=== PATIENT | male | born 1935 | race Caucasian/White ===

== ENCOUNTER 2016-09-11 10:01 | Inpatient (IN) | payer MEDICARE ==
[~2016-09-11] VITALS: Ht 170.2 cm; Wt 78.2 kg
--- NOTE | ~2016-09-11 | HEMODYNAMI ---
PATIENT:RACHNA TAN MEDICAL RECORD: [id number] : [birth year] [address] [id number] ADMISSION DATE: 09/11/16 Generatedon:09/19/201614:33 Patient name: RACHNA TAN Patient #: [id number] SSN: [id number] : 1935 Date of study: 09/19/2016 Page: Of Hemodynamic Procedure Report Patient Data Patient Demographics Procedure consent was obtained First Name: RACHNA Gender: Male Last Name: BRITNEY : 1935 [facility] Initial: N Age: 81 year(s) Patient #: [id number] Race: SSN: [id number] Additional ID: [id number] Contact details Address: [address] [place] [address] State: [place] City: [facility] Zip code: [address] Admission Admission Data Admission Date: 09/11/2016 Admission Time: 15:26 Room #: [facility] Lab Results Lab Result Date: 09/19/2016 Lab Result Time: 0:00 Biochemistry Name Units Result Min Max BUN mg/dl 126 --(----)-* 7 18 Creatinine mg/dl 8.1 --(----)-* 0.6 1.3 CBC Name Units Result Min Max Hemoglobin g/dl 10.6 *-(----)-- 13.5 17.5 Procedure Procedure Types Cath Procedure Diagnostic Procedure MARY Procedure Description Procedure Date Procedure Date: 09/19/2016 Procedure Start Time: 14:22 Procedure End Time: 14:32 Procedure Staff Name Function Dmitry Nathan MD Performing Physician Nina Palma RT Scrub Merary Cohen RN Nurse Adwoa Kenny RT Monitor Khoa Dsouza RT Monitor Procedure Data Cath Procedure Fluoroscopy Diagnostic fluoroscopy Total fluoroscopy Time: 0 time: 0 min min Diagnostic fluoroscopy Total fluoroscopy dose: 0 dose: 0 mGy mGy Contrast Material Contrast Material Type Amount (ml) Isovue 370 0 Estimated blood loss: 0 ml Procedure Complications No complications Procedure Medications Medication Administration Route Dosage Oxygen NC 2 l/min Hurricaine [place] P.O. Sprays Refer to Anesthesia Notes for Sedation Medications Hemodynamics Rest HGB: 10.6 (g/dl) Heart Rate: 74 (bpm) Snapshots Pre Cath Intra NCS Post Cath Vital Signs Time Heart Resp SPO2 NIBP (mmHg) Rhythm Pain Sedation Rate (ipm) (%) Status Level (bpm) 14:12:42 74 16 99 Measuring NSR 0 (11) 10(A) , No pain 14:19:36 83 17 99 139/66(114) NSR 0 (11) 10(A) , No pain 14:23:56 83 16 99 126/50(118) NSR 0 (11) 6(A) , No pain 14:28:08 73 22 100 108/49(63) NSR 0 (11) 6(A) , No pain 14:32:16 166 13 100 106/43(86) NSR 0 (11) 9(A) , No pain Medications Time Medication Route Dose Verified Delivered Reason Notes Effective ness by by 14:12:17 Oxygen NC 2 Dmitry Reagan Per l/min [place] Noel physician RN 14:12:26 Hurricaine P.O. Sprays Dmitry Andres Per [place] [facility] physician MD KENNY 14:18:45 Refer to Dmitry Andres for Anesthesia [facility] sedation Notes for MD KENNY Sedation Medications Procedure Log Time Note 13:50:49 Nina Counts RT(R) sent for patient. Start room use. 14:04:56 Informed consent obtained and on chart 14:05:42 Diagnostic Cath Status : Elective 14:07:01 Time tracking: Regular hours 14:07:04 Plan of Care:Hemodynamics will remain stable., Cardiac rhythm will remain stable., Comfort level will be maintained., Respiratory function will remain adequate., Patient/ family verbilizes understanding of procedure., Procedure tolerated without complication., Recovers from procedure without complications.. 14:07:10 Patient received from Med II to CCL 1 Alert and oriented. Tansferred to table in Supine position. 14:07:11 Warm blankets applied, and brendan hugger turned on for patient comfort. 14:07:11 Correct patient and procedure confirmed by team. 14:07:12 ECG and BP/O2 sat monitors applied to patient. 14:08:37 syeda barriga B2B Account Executive present for MARY. 14:10:52 Vital chart was started 14:10:53 Baseline sample Acquired. 14:10:56 Rhythm: sinus rhythm 14:10:58 Full Disclosure recording started 14:11:04 H&P Date Dictated: 09/19/2016 Within 30 days and on chart.. 14:11:06 Pre-procedure instructions explained to patient. 14:11:06 Pre-op teaching completed and patient verbalized understanding. 14:11:07 Family in waiting room. 14:11:08 Patient NPO since Midnight. 14:11:37 Is the patient allergic to Iodine/contrast media? No. 14:11:39 Was the patient premedicated? No 14:11:41 Is patient on blood thinner?No 14:11:42 Patient diabetic? Yes. 14:11:43 If diabetic: On Metformin? No 14:11:48 Previous problem with sedation/anesthesia? No ? 14:11:50 Snore? No 14:11:51 Sleep apnea? No 14:11:53 Deviated septum? No 14:11:54 Opens mouth fully? Yes 14:11:55 Sticks out tongue? Yes 14:11:56 Airway obstruction? No ? 14:11:59 Dentures? No ? 14:12:12 Pre procedure: right dorsailis pedis pulse 1+ Palpable, but thready & weak; easily obliterated 14:12:17 Oxygen 2 l/min NC was given by Merary Cohen RN; Per physician; 14:12:26 Hurricaine [place] Sprays P.O. was given by Dmitry Nathan MD; Per physician; 14:12:41 Patient pain scale 0/10 ?. 14:12:56 IV patent on arrival in Left upper arm with 0.9% NaCl at [facility]. 14:13:41 Lab Result : BUN 126 mg/dl 14:13:41 Lab Result : Creatinine 8.1 mg/dl 14:13:41 Lab Result : Hemoglobin 10.6 g/dl 14:13:46 Lab results completed and on chart. 14:13:50 Alarms reviewed by R. N. 14:13:51 Sharps counted by scrub and verified by R.N. 14:13:53 Physician arrived 14:13:53 --------ALL STOP TIME OUT------ 14::53 Final Timeout: patient, procedure, and site verified with staff and physician. All members of the team are in agreement. 14:13:59 Physical assessment completed. ASA score P 4 - A patient with severe systemic disease that is a constant threat to life as per Dmitry Nathan MD. 14:14:06 Sedation plan: IV Moderate Sedation Versed, Fentanyl 14:14:16 dr boogie present and monitoring patient for TIVA. 14:18:45 Refer to Anesthesia Notes for Sedation Medications was given by Dmitry Nathan MD; for sedation; 14:22:14 Procedure started. 14:23:01 MARY started. 14:29:30 MARY completed. 14:29:34 Procedure ended.(Physican Out) 14::53 Fluoroscopy time 00.00 minutes. 14:29:55 Fluoroscopy dose: 0 mGy 14:29:55 Flurop Dose total: 0 14:30:05 Contrast amount:Isovue 370 0ml. 14:30:24 Post-procedure physical assessment completed. ASA score P 4 - A patient with severe systemic disease that is a constant threat to life as per Dmitry Nathan MD. 14:30:27 Post procedure rhythm: unchanged. 14:30:28 Estimated blood loss: 0 ml 14:30:30 Post procedure instruction explained to patient.Patient verbalizes understanding. 14:30:30 Patient needs reinforcement of post procedure teaching. 14:31:26 Procedure Complication : No complications 14:32:15 Procedure and supply charges have been captured, reviewed, submitted and are correct. 14:32:16 Vital chart was stopped 14:32:16 See physician's report for complete and final results. 14:32:22 Report given to PCU. 14:32:26 Patient transfered to PCU with Bed. 14:32:28 Procedure ended. 14:32:28 Full Disclosure recording stopped 14:33:00 End room use (Document Last) Signature Audit Dyer Stage Time Signature Unsigned Intra-Procedure 09/19/2016 Khoa Dsouza 2:33:29 PM RT(R) Signatures Monitor : Adwoa Kenny RT Signature : Date : Time : Monitor : Khoa Dsouza RT Signature : Date : Time : [place] [id number] [place] [address]
[~2016-09-11 10:01] MED LIST: COLACE100 MG PO; COREG12.5 MG PO; DULCOLAX5 MG PO; GABAPENTIN100 MG PO; LASIX80 MG PO; NOVOLIN 70/30 110 ML SC; NOVOLIN N100 U/ML SQ; OXY IR30 MG PO; ULTRACET TABLET1 TAB PO
[2016-09-11 10:39] LABS: BASOPHILS 0.1 % (0.0-2.0); EOSINOPHILS 0 % (0-7); HEMATOCRIT 33.1 % (42.0-54.0); HEMOGLOBIN 10.3 g/dL (13.5-17.5); IMMATURE GRANULOCYTES 1.7 % (0-5); MCH 30.7 pg (26.0-34.0); MCHC 31.1 g/dL (31.0-37.0); MCV 98.8 fL (80.0-100.0); MONOCYTES 2.8 % (2-11); NEUTROPHILS 93.4 % (40-80); PLATELET COUNT 147 10x3/uL (130-400); RBC 3.35 10x6/uL (4.20-6.10); WBC 13.9 10x3/uL (4.8-10.8)
[2016-09-11 10:51] LABS: ALBUMIN 2.7 g/dL (3.4-5.0); ANION GAP 23.2 mmol/L (8-16); BILIRUBIN - TOTAL 0.59 mg/dL (0.2-1.3); CALCIUM 8.7 mg/dL (8.5-10.1); CREATININE - SERUM 6.5 mg/dL (0.6-1.3); POTASSIUM - SERUM 5.2 mmol/L (3.5-5.1); PROTEIN - SERUM 6.6 g/dL (6.4-8.2)
[2016-09-11 12:03] LABS: APPEARANCE CLOUDY (CLEAR); BACTERIA MANY /hpf (NONE SEEN); BILIRUBIN NEGATIVE (NEGATIVE); COLOR YELLOW (YELLOW); EPITHELIAL CELLS 0-5 /hpf (0-5); GLUCOSE NEGATIVE (NEGATIVE); KETONE NEGATIVE (NEGATIVE); LEUKOCYTE ESTERASE 2+ (NEGATIVE); MUCUS <1+ /lpf (NONE SEEN); NITRITE NEGATIVE (NEGATIVE); PROTEIN 1+ mg/dL (NEGATIVE); RED CELLS - URINE 0-5 /hpf (0-5); UROBILINOGEN NORMAL (NORMAL); WHITE CELLS - URINE 25-50 /hpf (0-5)
--- NOTE | 2016-09-11 13:37 | NUR ---
TRANSFER FROM ER BY STRETCHER. OREINTED TO ROOM. CALL LIGHT IN REACH. WILL CONT. PLAN OF CARE.
[2016-09-11 14:17] VITALS: BP 113/48; BMI 24.8
--- NOTE | 2016-09-11 14:38 | NUR ---
WOUND CARE: NOTED PT ARRIVED TO [facility] WITH THE FOLLOWING SKIN ISSUES: RIGHT HEEL: UNSTAGEABLE PRESSURE INJURY MEASURING 8CM X 5CM LEFT HEEL: UNSTAGEABLE PRESSURE INJURY MEASRING 3CM X 3CM RIGHT UPPER BUTTOCK: SKIN TEAR 1CM X 0.5CM SACRUM 1CM X 0.5CM X 0.5CM STAGE 3 PRESSURE INJURY. STATES THEY HAVE BEEN TRYING TO HEAL THIS FOR A "LONG, LONG TIME". RECOMMEND BRIDGING HEELS AT ALL TIMES WITH PILLOWS AND HEEL PROTECTORS. PLACING PT ON AN AIR OVERLAY MATTRESS, TURN/REPOSITION Q 2 HOURS. CALMOSEPTINE CREAM TO BOTTOM DAILY. WOUND CARE WILL CONTINUE TO MONITOR.
--- NOTE | 2016-09-11 14:38 | NUR ---
PATIENT ARRIVED FROM ER. ASSESSMENT AND HISTORY DONE. WOUND CARE NURSE IN TO ASSESS KATIE FEET AND COCCYX. DR. ALMANZA HERE AND VISTED WITH PATIENT AND SIGNIFICANT OTHER ABOUT DNR. WILL CONTINUE TO MONITOR.
[2016-09-11 15:03] VITALS: BP 113/48
--- NOTE | 2016-09-11 16:51 | NUR ---
1ST STEP MATRESS PUT ON BED. SCDS AND HEEL PROTECTORS APPLIED BILAT. WILL CONT. PLAN OF CARE.
[2016-09-11 20:13] VITALS: BP 107/46
--- NOTE | 2016-09-12 00:55 | NUR ---
RESTING WITH EYES CLOSED, RESPERATIONS EVEN, NO S/S DISTRESS NOTED.
--- NOTE | 2016-09-12 02:26 | NUR ---
KAIAKO KOHANGA REO AT BED SIDE, BATH AND LINEN CHANGE COMPLETE.
[2016-09-12 02:32] VITALS: BP 110/52
--- NOTE | 2016-09-12 03:25 | NUR ---
BS 199, COVERED PER S/S.
--- NOTE | 2016-09-12 03:26 | NUR ---
TRACK GREASER AT BED SIDE, BATH AND LINEN CHANGE COMPLETE.
[2016-09-12 06:10] VITALS: BP 110/52
[2016-09-12 06:27] LABS: ALBUMIN 2.1 g/dL (3.4-5.0); ANION GAP 23.9 mmol/L (8-16); BILIRUBIN - TOTAL 0.4 mg/dL (0.2-1.3); CALCIUM 7.7 mg/dL (8.5-10.1); CARBON DIOXIDE 20.6 mmol/L (21.0-32.0); MAGNESIUM - SERUM 2.1 mg/dL (1.8-2.4); PHOSPHOROUS 6.3 mg/dL (2.5-4.9); POTASSIUM - SERUM 5.5 mmol/L (3.5-5.1); PROTEIN - SERUM 5.2 g/dL (6.4-8.2)
--- NOTE | 2016-09-12 07:15 | NUR ---
RECIEVED REPORT ON PATIENT, PATIENT IS SLEEPING AT THIS TIME, NAD NOTED AT THIS TIME. PATIENT IS ON 3L/MIN VIA NC WITH O2SAT 96%. PATIENT HAS A L FA IV WITH NS INFUSING AT 50ML/HR. PATIENT IS PACED ON TELEMETRY WITH A RATE OF 61 AT THIS TIME. PATIENT BED IS LOW AND LOCKED AT THIS TIME. BED ALARM ON. WILL CONT TO MONITOR PATIENT. CPOC
[2016-09-12 07:50] VITALS: BP 86/44
--- NOTE | 2016-09-12 08:36 | NUR ---
PATIENT GETTING DIAYLSIS AT BEDSIDE
--- NOTE | 2016-09-12 11:08 | NUR ---
patient still getting diaylsis. denies any needs or pain. cpoc
[2016-09-12 11:40] VITALS: BP 115/36
--- NOTE | 2016-09-12 11:42 | NUR ---
Mr. Arredondo had bedside hemodialysis via his left upper arm av graft from 08 until 1118. Average blood flow was 350 mls/minute. Net fluid removed was 1000 mls. Pt. was hypotensive all treatment. Post vital signs were: B/P: 107/32, HR: 78, Temp: 96.9 ax, Resps: 18.
--- NOTE | 2016-09-12 11:55 | NUR ---
PATIENT PUT ON CONTACT ISOLATION FOR STAPH IN BLOOD AND URINE
--- NOTE | 2016-09-12 13:00 | NUR ---
PATIENT SLEEPING AT THIS TIME, NAD NOTED. CHEST RISES AND FALLS EQUALLY. WILL CONT TO MONITOR PATIENT. BED LOW AND LOCKED. CPOC
[2016-09-12 13:48] VITALS: Ht 170.2 cm; Wt 78.2 kg
[2016-09-12 15:46] VITALS: BP 91/98
--- NOTE | 2016-09-12 16:45 | NUR ---
PATIENT FSBS 252, 5 UNITS OF NPH GIVEN PER EMAR. CPOC
[2016-09-12 19:59] VITALS: BP 108/58
--- NOTE | 2016-09-13 00:19 | NUR ---
ELECTRICIAN SUPERVISOR SUBSTATION AT BEDSIDE TO OBTAIN VITALS, CALL LIGHT IN REACH. WILL CONTINUE WITH PLAN OF CARE.
--- NOTE | 2016-09-13 03:48 | NUR ---
RESTING WITH EYES CLOSED, RESPERATIONS EVEN, NO S/S DISTRESS NOTED.
[2016-09-13 04:11] VITALS: BP 114/70
[2016-09-13 05:11] LABS: BASOPHILS 0.1 % (0.0-2.0); EOSINOPHILS 0.1 % (0-7); HEMATOCRIT 31.1 % (42.0-54.0); HEMOGLOBIN 9.8 g/dL (13.5-17.5); IMMATURE GRANULOCYTES 0.4 % (0-5); MCH 30.2 pg (26.0-34.0); MCHC 31.5 g/dL (31.0-37.0); MEAN PLATELET VOLUME 12.5 fL (7.4-10.4); MONOCYTES 3.2 % (2-11); NEUTROPHILS 92.2 % (40-80); RBC 3.24 10x6/uL (4.20-6.10); RDW 15.2 % (11.5-14.5); WBC 14.1 10x3/uL (4.8-10.8)
[2016-09-13 05:26] LABS: PLATELET COUNT 92 10x3/uL (130-400)
[2016-09-13 05:32] LABS: ALBUMIN 2.2 g/dL (3.4-5.0); ANION GAP 19.4 mmol/L (8-16); BILIRUBIN - TOTAL 0.52 mg/dL (0.2-1.3); CALCIUM 8.8 mg/dL (8.5-10.1); CARBON DIOXIDE 25.4 mmol/L (21.0-32.0); MAGNESIUM - SERUM 2.3 mg/dL (1.8-2.4); PHOSPHOROUS 5.6 mg/dL (2.5-4.9); POTASSIUM - SERUM 4.8 mmol/L (3.5-5.1); VANCOMYCIN - RANDOM 12.6 ug/mL (10.0-20.0)
[2016-09-13 05:39] VITALS: BP 108/56
[2016-09-13 05:59] LABS: PLATELET ESTIMATE DECREASED
--- NOTE | 2016-09-13 06:26 | NUR ---
WOOD CABINETMAKER AT BED SIDE, BATH AND LINEN CHANGE COMPLETE.
--- NOTE | 2016-09-13 07:37 | NUR ---
0715-RESTING IN BED WITH EYES CLOSED. RESP ARE EVEN AND NON LABORED. IN CONTACT ISOLATION. ON 1ST STEP OVERLAY BED. PATIENT IS DNR CODE STATUS. LEFT PACER/DEFIB SEEN. ON HEART MONITOR SHOWING PACED, HR 72. ON 3L PER NC. LEFT ARM IV OF NS INFUSING AT 50 CC/HR SEEN, RIGHT AVF SEEN. WILL CONTINUE TO MONITOR.
[2016-09-13 08:00] VITALS: BP 81/44
--- NOTE | 2016-09-13 08:36 | NUR ---
Patient [facility] Pt from [facility] D[facility] on MWF @ 11:00 (2nd shift) schedule. Medical records forwarded to clinic for their records. BMM PRL
[2016-09-13 12:00] VITALS: BP 91/26
--- NOTE | 2016-09-13 13:11 | NUR ---
1305-ASSESSMENT COMPLETE. WITH ASSISTANCE OF VICTOR M CLAIRE, PATIENT ROLLED TO SIDE TO ASSESS BUTTOCK. LARGE DEEP TISSUE INJURY SEEN TO COCCYX WITH SKIN TEAR SEEN. MEPILEX SACRUM IS APPLIED AND DATED. BILAERAL HEELS SEEN WITH DEEP TISSURE INJURY TO THEM, PATIENT DOES HAVE BILATEAL PINK HEELS PROTECTORS ON. TURN EVERY 2 HOURS SIGN PLACED TO DOOR. PATIENT IS PLACED ON LEFT SIDE WITH PILLOW BEHIND BACK AND UNDER LEGS FOR COMFORT. WILL CONTINUE TO MONITOR.
--- NOTE | 2016-09-13 14:20 | NUR ---
Patient Name: RACHNA TAN Admission Status: ER Accout number: [id number] Admission Date: 09-11-2016 : 1935 Admission Diagnosis:COUGH Attending: FABRICIO Current LOS: 2 Anticipated DC Date: Planned Disposition: Nursing Home Facility Primary Insurance: HU[employer] CHOICE PPO MCR ADVANT PLANNED EXTERNAL PROVIDER: [facility], MEDICARE REHAB BED Discharge Planning Comments: * Is the patient Alert and Oriented? No 0 * How many steps to enter\exit or inside your home? 2 0 * PCP DR. DAVID PALENCIA OR ANOTHER DOCTOR IN THE RENAL GROUP 0 * Pharmacy [facility] #2 0 * Preadmission Environment Home with Family 0 * ADLs Independent 0 * Equipment Bedside Commode CPAP Other Oxygen Rolling Walker Shower Chair Wheelchair 0 * Other Equipment PT HAS VERY OLD CPAP MACHINE, HOME ANO PORTABLE OXYGEN, MOTORIZED WHEELCHAIR, MOTOROZIED SCOOTER, GRAB BARS IN SHOWER [facility], - MEDICAL EQUIPMENT PROVIDER 0 * List name and contact numbers for known caregivers / representatives who currently or will assist patient after discharge: LUCIEN HERNANDEZ, SIGNIFICANT OTHER, 0 * Community resources currently utilized Other 0 * Please name any agencies selected above. [facility] on MWF @ 11:00 Paid caregiver drives PT to and from [facility] 0 * Additional services required to return to the preadmission environment? No 0 * Can the patient safely return to the preadmission environment? Yes 0 * Has this patient been hospitalized within the prior 30 days at any hospital? No 0 CM MET WITH PT IN ROOM TO DISCUSS DISCHARGE PLANNING AND NEEDS. PT WOULD LOOK AT PT BUT DOES NOT SPEAK. PT'S SIGNIFICANT OTHER, RIVERA HERNANDEZ, REPORTS THAT PT WAS DOING WELL AT HOME UNTIL LAST FRIDAY. SHE REPORTS LIVING AT HOME INDEPENDENTLY WITH HER (SIGNIFICANT OTHER). PT HAS ALL NEEDED MEDICAL EQUIPMENT PROVIDED BY [facility]. PT HAS NO OUTSIDE SERVICES ASSISTING IN THE HOME. CM DISCUSSED AVAILABILITY OF HOME HEALTH, REHAB SERVICES AND MEDICAL EQUIPMENT. PT'S SIGNIFICANT OTHER REPORTS THAT PT WILL NEED REHAB PRIOR TO GOING HOME AND HAS BEEN TO [facility] IN THE PAST. IF [facility] WILL NOT ACCEPT, SHE WOULD LIKE REFERRAL SENT TO [facility]. CHOICE LETTER SIGNED. CM CALLED [facility], , SPOKE TO BRITTNEY WHO REPORTS THEY WILL NOT ACCEPT PT THAT IS HAVING OUTPATIENT DIALYSIS. CM CALLED [facility], , LEFT MESSAGE FOR BRIGIDO NOTIFYING OF REFERRAL BEING SENT FOR REHAB SERVICES. CM FAXED REFERRAL TO [facility] AT [phone]. CM WAITING ADMISSION DETERMINATION FROM [facility]. Marketing Effectiveness Manager: Aba Egan
[2016-09-13 16:00] VITALS: BP 86/42
[2016-09-13 20:36] VITALS: BP 89/40
[2016-09-14 00:24] VITALS: BP 99/46
[2016-09-14 04:30] VITALS: BP 90/39
--- NOTE | 2016-09-14 06:49 | NUR ---
RECEIVED REPORT FROM ACID BLEACHER NURSE, SEBASTIÁN WHITTEN. PT IN BED, DENIES ANY NEEDS AT THIS TIME. CALL LIGHT IN REACH, HEEL PROTECTORS ON BILAT. IV INFUSING TO LT UPPER ARM. NAD NOTED, WILL CONTINUE TO MONITOR.
[2016-09-14 07:57] LABS: BASOPHILS 0 % (0.0-2.0); EOSINOPHILS 0.1 % (0-7); HEMATOCRIT 29.1 % (42.0-54.0); HEMOGLOBIN 9.2 g/dL (13.5-17.5); IMMATURE GRANULOCYTES 0.4 % (0-5); LYMPHOCYTES 4.5 % (15-50); MCH 29.9 pg (26.0-34.0); MCHC 31.6 g/dL (31.0-37.0); MCV 94.5 fL (80.0-100.0); MONOCYTES 3.3 % (2-11); NEUTROPHILS 91.7 % (40-80); PLATELET COUNT 80 10x3/uL (130-400); RBC 3.08 10x6/uL (4.20-6.10); RDW 15.1 % (11.5-14.5); WBC 14.5 10x3/uL (4.8-10.8)
[2016-09-14 08:12] LABS: ANION GAP 20.8 mmol/L (8-16); CALCIUM 8.7 mg/dL (8.5-10.1); CARBON DIOXIDE 22.2 mmol/L (21.0-32.0); PHOSPHOROUS 5.1 mg/dL (2.5-4.9)
[2016-09-14 08:28] VITALS: BP 102/54
--- NOTE | 2016-09-14 10:25 | NUR ---
ADMINISTERED ULTRAM 50MG FOR PAIN LEVEL OF 5/10. PT DENIES ANY OTHER NEEDS AT THIS TIME, CALL LIGHT IN REACH, NAD NOTED, WILL CONTINUE TO MONITOR.
--- NOTE | 2016-09-14 10:28 | NUR ---
ADMINISTERED MORNING MEDICATIONS AND 4 UNIT SOF HUMULIN FOR BLOOD SUGAR OF 248, PER SLIDING SCALE. PT DENIES ANY NEEDS AT THIS TIME. CALL LIGHT IN REACH, NAD NOTED, WILL CONTINUE TO MONITOR.
[2016-09-14 11:53] VITALS: BP 109/32
--- NOTE | 2016-09-14 12:04 | NUR ---
ADMINISTERED 8 UNITS OF HUMULIN FOR BLOOD SUGAR OF 327, PER SLIDING SCALE.
[2016-09-14 16:03] VITALS: BP 117/48
--- NOTE | 2016-09-14 19:25 | NUR ---
DIALYSIS CURRENTLY IN PROGRESS
[2016-09-14 20:49] VITALS: BP 129/39
--- NOTE | 2016-09-14 21:02 | NUR ---
DILYSIS FINISHED, RECIEVED REPORT FROM DAWNA, DIALYSIS NURSE, REMOVED 2.5 LITERS OF FLUID, VITALS REMAIN STABLE.
--- NOTE | 2016-09-14 21:08 | NUR ---
Mr. Arredondo had bedside hemodialysis today via his right upper arm av graft from 1749 until 2049. Average blood flow was 350 mls/minute. Infused Vancomycin 500 mgs during the last one hour. Removed the 100 mls from the vancomycin as well as a net of 3500 mls. Post vital signs were: B/P: 132/56, HR:55, Temp: 97.3, Resps: 20.
--- NOTE | 2016-09-14 21:24 | NUR ---
HS MEDS GIVEN, BS 174, COVERED PER S/S. REPOSITIONED IN BED FOR COMFORT.
[2016-09-15 00:04] VITALS: BP 92/43
--- NOTE | 2016-09-15 03:18 | NUR ---
RESTING WITH EYES CLOSED, RESPERATIONS EVEN, NO S/S DISTRESS NOTED.
[2016-09-15 04:12] VITALS: BP 102/50
[2016-09-15 04:45] LABS: BASOPHILS 0.2 % (0.0-2.0); EOSINOPHILS 0.5 % (0-7); IMMATURE GRANULOCYTES 0.5 % (0-5); LYMPHOCYTES 5.4 % (15-50); MCH 30.4 pg (26.0-34.0); MCHC 32.3 g/dL (31.0-37.0); MCV 94.2 fL (80.0-100.0); MONOCYTES 4.5 % (2-11); NEUTROPHILS 88.9 % (40-80); PLATELET COUNT 91 10x3/uL (130-400); RBC 3.29 10x6/uL (4.20-6.10); WBC 12.8 10x3/uL (4.8-10.8)
[2016-09-15 05:04] LABS: ANION GAP 20.5 mmol/L (8-16); CALCIUM 8.7 mg/dL (8.5-10.1); CARBON DIOXIDE 24.2 mmol/L (21.0-32.0); CREATININE - SERUM 6.5 mg/dL (0.6-1.3); POTASSIUM - SERUM 4.7 mmol/L (3.5-5.1)
--- NOTE | 2016-09-15 07:15 | NUR ---
RECIEVED REPORT ON PAITNET, PATIENT IS SLEEPING AT THIS TIME. PATIENT HAS A L UPPER ARM WITH NS INFUSING AT 30ML/HR. PATIENT HAS A R AVF WITH BRUIT AND THRILL NOTED. NAD IS NOTED, CHEST RISES AND FALLS EQUALLY. PATIENT IS PACED ON MONITOR WITH A RATE OF 59. WILL CONT TO MONITOR PATIENT. BED LOW AND LOCKED. CALL LIGHT IN REACH. CPOC
[2016-09-15 08:52] VITALS: BP 110/52
--- NOTE | 2016-09-15 09:30 | NUR ---
WHEN TURNING PATIENT TO ASSESS SKIN, PATIENT HAS A LARGE REDDENED AREA ON BUTTOCK AND COCCYX. PATIENT HAS 3 OPEN STAGE 2 AREAS NOTED. ONE THAT IS APPROX 3CM X 1CM, ANOTHER THAT IS APPROX 1CM X 1CM AND THE LAST THAT IS 3CM X 2CM. APPLIED MEPILEX DRESSING AND WILL CONT TO TURN PATIENT EVERY 2 HOURS. CPOC
--- NOTE | 2016-09-15 11:45 | NUR ---
PATIENT EATING LUNCH AT THIS TIME, NOT WANTING TO EAT MUCH BUT IS DRINKING CRANBERRY JUICE.PATIENT FSBS 202, 2 UNITS OF HUMULIN GIVEN, WILL CONT TO ,MONITOR. CPOC
[2016-09-15 13:20] VITALS: BP 101/42
--- NOTE | 2016-09-15 15:26 | NUR ---
PATIENT FAMILY AT BEDSIDE. PATIENT DENIES ANY NEEDS. CPOC
[2016-09-15 17:18] VITALS: BP 108/52
--- NOTE | 2016-09-15 19:03 | NUR ---
LAYING IN BED WITH EYES CLOSED, AWAKENS TO NAME, SKIN WARM AND DRY, RESP UNLABORED, IV PATENT TO LEFT UPPER ARM, O2@2LNC, DRESSING INTACT TO BUTTOCKS, NO DISTRESS NOTED
[2016-09-15 20:19] VITALS: BP 98/61
--- NOTE | 2016-09-15 23:46 | NUR ---
CUT FILER AT BEDSIDE FOR VS, NEEDS ADDRESSED. CALL LIGHT IN REACH. WILL CONT TO MONITOR.
[2016-09-16 00:36] VITALS: BP 101/54
[2016-09-16 04:46] VITALS: BP 127/73
[2016-09-16 05:13] LABS: BASOPHILS 0.2 % (0.0-2.0); HEMATOCRIT 32.1 % (42.0-54.0); HEMOGLOBIN 10.1 g/dL (13.5-17.5); IMMATURE GRANULOCYTES 1.3 % (0-5); LYMPHOCYTES 7.8 % (15-50); MCH 30.2 pg (26.0-34.0); MCHC 31.5 g/dL (31.0-37.0); MCV 96.1 fL (80.0-100.0); MEAN PLATELET VOLUME 12.2 fL (7.4-10.4); MONOCYTES 6.5 % (2-11); NEUTROPHILS 82.2 % (40-80); PLATELET COUNT 132 10x3/uL (130-400); RBC 3.34 10x6/uL (4.20-6.10); RDW 15.1 % (11.5-14.5); WBC 10.2 10x3/uL (4.8-10.8)
[2016-09-16 05:34] LABS: ANION GAP 24.2 mmol/L (8-16); CALCIUM 8.9 mg/dL (8.5-10.1); CARBON DIOXIDE 21.6 mmol/L (21.0-32.0); CREATININE - SERUM 7.5 mg/dL (0.6-1.3); POTASSIUM - SERUM 4.8 mmol/L (3.5-5.1)
--- NOTE | 2016-09-16 06:02 | NUR ---
RESTING QUIETLY IN BED, NO DISTRESS NOTED
[2016-09-16 08:00] VITALS: BP 124/54
[2016-09-16 11:27] VITALS: BP 112/74
[2016-09-16 16:00] VITALS: BP 117/45
--- NOTE | 2016-09-16 18:36 | NUR ---
RESTING IN BED. SOILED LINENS. BM LOOSE, BROWN IN COLOR. DRESSING ON BUTTOCKS CHANGED. NO DRAINAGE. SKIN PILLING OFF. HEELS BRIDGED. PACED 60bpm ON TELEMETRY. REFUSED LUNCH AND DINNER. PATIENT STATES, "I JUST WANT TO SLEEP." CONTINUE PLAN OF CARE. PREPAIR SHIFT CHANGE REPORT. DENIES SOB. BED LOCKED AND LOW CALL LIGHT IN REACH. TWO SIDERAILS UP. RECIEVES LOVENOX INJ.
[2016-09-16 20:58] VITALS: BP 106/61
[2016-09-17 01:46] VITALS: BP 111/64
--- NOTE | 2016-09-17 02:42 | NUR ---
PT LAYING IN BED NO DISTRESS OBSERVED AT THIS TIME CALL LIGHT IN REACH SRX2 BED LOW AND LOCKED IV INFUSING ORDERED AND NO REDNESS OR SWELLING NOTED AT THE SITE OF IV RESPERATIONS EVEN AND UNLBAORED WILL MONITOR
[2016-09-17 05:13] VITALS: BP 104/66
[2016-09-17 05:28] LABS: BASOPHILS 0.3 % (0.0-2.0); EOSINOPHILS 3.5 % (0-7); HEMATOCRIT 33.8 % (42.0-54.0); HEMOGLOBIN 10.6 g/dL (13.5-17.5); IMMATURE GRANULOCYTES 2.3 % (0-5); LYMPHOCYTES 5.9 % (15-50); MCH 29.7 pg (26.0-34.0); MCHC 31.4 g/dL (31.0-37.0); MCV 94.7 fL (80.0-100.0); MEAN PLATELET VOLUME 11.7 fL (7.4-10.4); MONOCYTES 6.8 % (2-11); NEUTROPHILS 81.2 % (40-80); RBC 3.57 10x6/uL (4.20-6.10); RDW 14.9 % (11.5-14.5); WBC 10.3 10x3/uL (4.8-10.8)
[2016-09-17 05:33] LABS: PLATELET COUNT 164 10x3/uL (130-400)
[2016-09-17 06:02] LABS: ANION GAP 24.1 mmol/L (8-16); CALCIUM 7.6 mg/dL (8.5-10.1); CARBON DIOXIDE 21.7 mmol/L (21.0-32.0); CREATININE - SERUM 8.1 mg/dL (0.6-1.3); POTASSIUM - SERUM 4.8 mmol/L (3.5-5.1); VANCOMYCIN - RANDOM 18.3 ug/mL (10.0-20.0)
[2016-09-17 08:28] VITALS: BP 102/51
[2016-09-17 12:39] VITALS: BP 128/60
[2016-09-17 16:26] VITALS: BP 125/56
[2016-09-18 00:37] VITALS: BP 127/69
[2016-09-18 04:31] VITALS: BP 119/31
[2016-09-18 08:40] VITALS: BP 126/38
--- NOTE | 2016-09-18 10:43 | NUR ---
PATIENT RESTING QUIETLY IN BED WITHOUT DISTRESS. WILL CONTINUE TO MONITOR
[2016-09-18 12:38] VITALS: BP 140/63
--- NOTE | 2016-09-18 12:51 | NUR ---
Patient Name: RACHNA TAN Encounter No: [id number] : 1935 Primary Insurance: HUMANA CHOICE PPO MCR ADVANT Anticipated DC Date: Planned Disposition: Half-Way Facility External Planned Provider: [facility] B[facility] DCP follow-up note: CM RECEIVED ORDER FOR CONSULT DUE TO AGE. CM FAXED REFERRAL UPDATE FOR REHAB SERVICES TO [facility] AT [phone]. CM WAITING ADMISSION DETERMINATION FROM [facility]. Material Attendant: Aba Egan
--- NOTE | 2016-09-18 13:49 | NUR ---
Nutrition follow-up: Diet: Renal ADA soft with Nepro PO intake is very, very poor at this time Labs reviewed +BM IVF @ 30 ml/hr Pt not meeting est nutritional needs with current po intake. Recommend PEG tube placement and TF of Nepro started @ 20 ml/hr with increase to 45 ml/hr. RDN following.
--- NOTE | 2016-09-18 15:00 | NUR ---
REC'D THIS PT FROM PREVIOUS NURSE OTIS. PT RESTING QUIETLY IN BED WITH EYES CLOSED. NO S/S OF DISTRESS OR ANY CURRENT NEEDS AT THIS TIME. CL IN REACH. WILL CPOC.
[2016-09-18 16:07] VITALS: BP 126/33
--- NOTE | 2016-09-18 19:30 | NUR ---
ASSESSMENT COMPLETE, DENIES NEEDS AT THIS TIME. CONFUSED, EASILY REORIENTED TO TIME AND PLACE. ON ROOM AIR, RESP EVEN AND UNLAB, TELEMETRY IN PLACE SHOWING HR PACED PER PUBLIC RECORDS OFFICER. LEFT UPPER ARM IV SITE WITH NO R/S NOTED. NS INFUSINF W/O DIFF VIA PUMP AT 30CC/HR . JASON WELL. ON FIRST STEP MATTRESS. BILAT HEEL PROTECTORS IN PLACE. TURN Q 2 FOR C & C, PILLOWS USED FOR SUPPORT. JASON WELL. HOB UP SR UP X2, C/L IN REACH. CONTINUE TO MONITOR.
[2016-09-18 22:30] VITALS: BP 119/52
[2016-09-19 02:50] VITALS: BP 123/57
[2016-09-19 06:05] VITALS: BP 114/49
--- NOTE | 2016-09-19 07:02 | NUR ---
RECEIVED REPORT FROM NURSING COORDINATOR NURSE, NOBLE LOPEZ. PT IN BED, SLEEPING AT THIS TIME. CALL LIGHT IN REACH, NAD NOTED, WILL CONTINUE TO MONITOR.
[2016-09-19 08:21] VITALS: BP 115/57
--- NOTE | 2016-09-19 09:16 | NUR ---
ADMINISTERED MORNING MEDICATIONS, PT IN BED, HAD A LITTLE HARD TIME SWALLOWING PILLS. PT IN BED, DENIES ANY NEEDS AT THIS TIME. CALL LIGHT IN REACH, NAD NOTED, WILL CONTINUE TO MONITOR.
--- NOTE | 2016-09-19 09:25 | NUR ---
PT TRANSFERED TO DIALYSIS VIA BED, NAD NOTED.
--- NOTE | 2016-09-19 10:08 | CN ---
PATIENT NAME:RACHNA TAN MEDICAL RECORD: [id number] : [birth year] LOCATION:D. D.2134 ADMIT DATE: 09/11/16 ACCOUNT: [id number] CONSULTING PHYSICIAN: NINA RICHARDSON MD REFERRING PHYSICIAN: SEBASTIÁN ALMANZA MD DATE OF CONSULTATION: 09/14/2016 ADDENDUM CHIEF COMPLAINT: Wounds. HISTORY OF PRESENT ILLNESS: The patient has bilateral heel eschar. He has decubitus ulcer. He also has knee that has some superficial eschars. I am special education instructor for Dr. Garcia. He is currently out of town. Today is Friday. He will return on the , which is next Friday. I think that local wound care would be the most appropriate thing for now. Palpation aggravates. Nothing alleviates. Symptoms came on gradually. They are longstanding. The patient was admitted with urinary tract infection. From my standpoint, the patient can go home and to return and have these areas debrided. This is a surgery consultation note addendum. For the typed portion of the consult note including the past medical, surgical history, allergies, current medications, and social history, please see the chart PHYSICAL EXAMINATION: GENERAL: The patient does not appear acutely ill. He does appear chronically ill. VITAL SIGNS: Reviewed. HEAD: External ears appear normal. EYES: Extraocular movements are intact. NECK: Trachea is midline. CHEST: No intercostal retractions. PULMONARY: Nonlabored, no stridor. ABDOMEN: No peritonitis. EXTREMITIES: No peripheral cyanosis. Eschars described above. PSYCHIATRIC: Normal affect. NEUROLOGIC: Nonfocal, no lethargy. The patient answers questions appropriately, moves all extremities well. BACK: Mild thoracic kyphosis. LYMPHATICS: No lymphangitic streaking of exposed extremities. IMPRESSION: Bilateral heel ulcers knee eschar decubitus ulcer. PLAN: Debridement next Friday by Dr. Garcia. TRANSINT:[id number] Voice Confirmation ID: [id number] DOCUMENT ID: [id number] CONSULT REPORT [id number] RACHNA TAN ROBERT MD at 1008 CC: [id number] DICTATION DATE: 09/14/162015 SOIL EXPERT: 09/15/16 0330 ADM [address] [place] [id number] [place] [address]
--- NOTE | 2016-09-19 13:28 | NUR ---
HEMODIALYSIS COMPLETE, NET FLUID REMOVAL OF 0.5 LITERS. PATIENT HAD LOW BP UPON INITIATION, USED ALBUMIN DURING TX FOR BP SUPPORT. PATIENT'S ACCESS HAD NO PALPABLE THRILL BEFORE ACCESSING, AND WAS DIFFICULT TO ACCESS-ESPECIALLY THE VENOUS STICK.
--- NOTE | 2016-09-19 14:17 | NUR ---
PT TRANSFERED FROM DIALYSIS TO CHILD CARE LEAD TEACHER FOR MARY.
--- NOTE | 2016-09-19 14:52 | NUR ---
PT TRANSFERED BACK TO ROOM, VIA BED, NAD NOTED, PT DENIES ANY NEEDS AT THIS TIME.CALL LIGHT IN REACH, NAD NOTED, WILL CONTINUE TO MONITOR.
[2016-09-19 15:45] VITALS: BP 140/64
--- NOTE | 2016-09-19 16:40 | NUR ---
BLOOD SUGAR OF 123, NO COVERAGE NEEDED PER SLIDING SCALE, ADMINISTERED 10UNITS OF HUMULIN NPH ORDER. RIVERA SCHOFIELDAN PT'S SIGNIFICANT OTHER IS AT BEDSIDE, FEEDING PT HOMEMADE FOOD. PT DENIES ANY NEEDS AT THIS TIME. CALL LIGHT IN REACH, NAD NOTED, WILL CONTINUE TO MONITOR. RIVERA SCHOFIELDAN'S CELL PH0NE NUMBER IS [phone]
--- NOTE | 2016-09-19 19:30 | NUR ---
ASSESSMENT COMPLETE, DENIES NEEDS AT THIS TIME. AWAKE, ALERT, CONFUSED TO TIME AND PLACE. EATING SNACK BROUGHT EARLIER. JASON WELL. HOB UP SR UP X2, C/L IN REACH. 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 PACED PER TELEMETRY. ON FIRST STEP MATTRESS FOR C & C. BILAT HEEL PROTECTORS IN PLACE. WILL BE NPO AFTER MN FOR AM DEBRIDEMENT PROCEDURE. WILL OBTAIN PERMITS PER ORDERDS. TURN Q 2 HOURS FOR C & C. JASON WELL. RT ARM FISTULA WITH + BRUIT AND THRILL NOTED. LEFT UPPER ARM IV SITE WITH NO R/S NOTED. CONTINUE TO MONITOR.
[2016-09-19 20:00] VITALS: BP 131/56
--- NOTE | 2016-09-19 20:42 | NUR ---
FSBS"200" COVERED WITH S/S INSULIN PER ORDERS. JASON INJ WELL TO LEFT ARM. C/L IN REACH.
--- NOTE | 2016-09-19 23:26 | NUR ---
EYES CLOSED, RESP UNLAB WITH NO S/S OF ACUTE DISTRESS NOTED. C/L IN REACH.
[2016-09-20] VITALS (7 sets, daily range): BP systolic 117–149; BP diastolic 50–77
[2016-09-20 05:43] LABS: BASOPHILS 0.2 % (0.0-2.0); HEMATOCRIT 26.9 % (42.0-54.0); HEMOGLOBIN 8.4 g/dL (13.5-17.5); IMMATURE GRANULOCYTES 1.5 % (0-5); LYMPHOCYTES 3.6 % (15-50); MCH 29.6 pg (26.0-34.0); MCHC 31.2 g/dL (31.0-37.0); MCV 94.7 fL (80.0-100.0); MEAN PLATELET VOLUME 10.9 fL (7.4-10.4); MONOCYTES 4.7 % (2-11); PLATELET COUNT 185 10x3/uL (130-400); RBC 2.84 10x6/uL (4.20-6.10); RDW 14.9 % (11.5-14.5); WBC 13.1 10x3/uL (4.8-10.8)
[2016-09-20 05:46] LABS: ANION GAP 17.2 mmol/L (8-16); CALCIUM 7.2 mg/dL (8.5-10.1); CARBON DIOXIDE 24.8 mmol/L (21.0-32.0); CREATININE - SERUM 5.1 mg/dL (0.6-1.3); MAGNESIUM - SERUM 2.2 mg/dL (1.8-2.4); PHOSPHOROUS 5.7 mg/dL (2.5-4.9); VANCOMYCIN - RANDOM 15.7 ug/mL (10.0-20.0)
--- NOTE | 2016-09-20 07:15 | NUR ---
RECIEVED REPORT ON PATIENT. PATIENT IS ALERT AND ORIENTED AT THIS TIME. PATIENT HAS A L UPPER ARM IV WITH NS INFUSING AT 30ML/HR. PATIENT IS ON 3L/MIN VIA NC WITH NAD NOTED. O2 SAT 98%. PATIENT HAS A [place] CATHETER INTACT DRAINING BY GRAVITY. PATIENT HEELS ARE BRIDGE AT THIS TIME, WITH HEEL PROTECTORS ON. PATIENT DENIES ANY NEEDS OR PAIN AT THIS TIME. WILL CONT TO MONITOR PATIENT, BED LOW AND LOCKED. CPOC
--- NOTE | 2016-09-20 09:15 | NUR ---
MORNING MEDICATIONS GIVEN, PO MEDS HELD DUE TO PATIENT BEING NPO. ASSESSMTENT DONE. DENIES ANY NEEDS. CPOC
--- NOTE | 2016-09-20 09:42 | NUR ---
Patient Name: RACHNA TAN Encounter No: [id number] : 1935 Primary Insurance: HUMANA CHOICE PPO MCR ADVANT Anticipated DC Date: Planned Disposition: Long Term Facility External Planned Provider: [facility], MEDICARE REHAB BED DCP follow-up note: CM RECEIVED CALL FROM BRIGIDO OF [facility] REQUESTING UPDATE. CM FAXED REFERRAL UPDATE FOR REHAB SERVICES TO [facility] AT [phone]. CM WAITING ADMISSION DETERMINATION FROM [facility]. Credit Operations Specialist: Aba Egan
--- NOTE | 2016-09-20 11:31 | NUR ---
Patient Name: RACHNA TAN Encounter No: [id number] : 1935 Primary Insurance: HUMANA CHOICE PPO MCR ADVANT Anticipated DC Date: Planned Disposition: Senior Care Facility External Planned Provider: [facility], MEDICARE REHAB BED DCP follow-up note: CM RECEIVED CALL FROM BRIGIDO AT [facility] WHO REPORTED THAT [facility] WILL NOT BE ABLE TO MEET PT'S NEEDS. CM CALLED PT'S SPOUSE, RIVERA HERNANDEZ, , LEFT MESSAGE ASKING FOR RETURN CALL. CM SPOKE TO PT IN ROOM WHO REPORTS TODAY HIS IS AT [facility] FOR CHEMOTHERAPY. CM DISCUSSED [facility] AND [facility] NOT ACCEPTING PT FOR REHAB. PT REPORTS NEEDING REHAB BEFORE GOING HOME AND WOULD LIKE CM TO CHECK WITH FACILITIES LOCAL TO [place] FOR REHAB PLACEMENT OPTIONS. PT CHOICE UPDATED. CM CALLED TATUM, CLINICAL LIAISON FOR [facility], , AND PROVIDED REFERRAL INFORMATION. CM FAXED REFERRAL FOR REHAB SCREENING TO TATUM AT [phone]. CM WAITING ADMISSION DETERMINATIONS FROM [facility]. Aba Egan, CASE MANAGEMENT
--- NOTE | 2016-09-20 11:45 | NUR ---
PATIENT FSBS 145, NO INSULIN REQUIRED. CPOC
--- NOTE | 2016-09-20 13:13 | NUR ---
patient gone for surgery
--- NOTE | 2016-09-20 13:54 | NUR ---
Nutrition Follow Up: Chart reviewed. Pt in surgery at this time. Diet: NPO (Renal ADA prior to this) PO Intake: 25% (7 meal avg) Wt stable +BM 09/20/16 Labs noted - BUN, Cr, Glucose, Phos elevated Meds: Humulin Pt continues with poor po intake. Pt is not meeting est nutritional needs. Rec an appetite stimulant. RD available for nutrition support recs if needed. Will send Raphael BID to promote wound healing. RD following.
--- NOTE | 2016-09-20 15:30 | NUR ---
PATIENT BACK FROM SURGERY. VSS. WARM BLANKET ON PATIENT. CPOC
--- NOTE | 2016-09-20 15:38 | NUR ---
PT HAS A 5IN BY 6 IN DECUBITIS ULCER THAT IS NETCROTIC AND UNSTAGABLE. PT REPORTS NOT BEING TURNED FREQUENTLY. DR HORN SAYS HE WAS NOT NOTIFIED ABOUT THE DECUBITIS. PTS HEELS WERE SUPPOSE TO BE BRIDGED AND WERE NOT. FOAM HEEL PROTECTOR WAS ON RIGHT HEEL AND THE FOAM HEEL PROTECTOR WAS NOT ON LEFT HEEL IT WAS TIED UP IN THE PATIENTS COVERS. THE PT HAD DRY FECAL MATTER ON HIS TESTICALS AND INBETWEEN HIS LEGS. THE BED HAD DRY SKIN, BETADINE, AND FOOD. ALSO, THE PATIENT WAS LEFT WITH THE PLASTIC URINAL INBETWEEN HIS LEGS RUBBING A RAW RIGHT AROUND HIS PENIUS AND TESTICALS.
--- NOTE | 2016-09-20 16:40 | EC ---
PATIENT:RACHNA TAN DATE OF SERVICE: 09/11/16 SEX: M MEDICAL RECORD: [id number] DATE OF : [birth year] LOCATION:D. D.213 AGE OF PATIENT: 81 ADMISSION DATE: 09/11/16 REFERRING PHYSICIAN: INTERPRETING PHYSICIAN: SERENE CRANE M.D. ECHOCARDIOGRAM REPORT ECHO CHARGES 4 ECHO COMPLETE CLINICAL DIAGNOSIS: SBE WITH POSTIVE BLOOD CULTURE AND LOW GRADE FEVER ECHOCARDIOGRAPHIC MEASUREMENTS (adult normal given) AC root (d.<3.7cm) 3.9 LV Septum d (<1.2 cm> 1.6 Valve Excursion 1.4 LV Septum (systole) 1.7 Left Atria (s.<4.0cm> 4.3 LVPW d(<1.2cm) 1.3 RV (d.<2.3cm) 4.4 LVPW (sytole) 1.6 LV diastole(<5.6CM) 6.1 MV E-F(>70mm/sec) LV systole 4.6 LVOT Diameter 1.7 MV exc.(>10mm) Est.ejection fraction (50-75%) Pericardial Effusion N DOPPLER: LVIT A 29.0 E 93.0 LA RVSP 33 LVOT 86 AOP1/2T Asc. Ao 122 RVOT 88 RA PA 126 AV Gradient Peak 6.0 AV Mean 2.9 AV Area 1.5 MV Gradient Peak 4.5 MV Mean 1.3 MV Area COMMENTS: Manager Communication: Mecca VERMA Finish Mixer:2 Dr. Crane TAPE# PACS DATE OF SERVICE: 09/12/2016 REFERRING PHYSICIAN: Demetris Turpin MD INDICATION: Endocarditis. DESCRIPTION: The left ventricle is mildly dilated. There is mild LV dysfunction noted. His ejection fraction is in the order of 40% to 45%. Mitral valve appears structurally normal. There is mild regurgitation seen. Left atrium is mildly dilated. The aortic valve is trileaflet. There is no stenosis ECHOCARDIOGRAM REPORT [id number] RACHNA TAN or regurgitation seen. Right ventricle is mildly dilated. Tricuspid valve appears to demonstrate a thickening of the anterior leaflet. This could be consistent with a vegetation. There is mild regurgitation noted as well. Right atrium is mildly dilated. There is no pericardial effusion seen. IMPRESSION: 1. Mild left ventricular dysfunction with ejection fraction of 40% to 45%. 2. Mild mitral regurgitation. 3. There appears to be thickening of the anterior leaf of the tricuspid valve, which could be consistent with a vegetation. There is mild regurgitation noted as well. RECOMMENDATIONS: Consider transesophageal echo if clinically indicated. TRANSINT:[id number] Voice Confirmation ID: [id number] DOCUMENT ID: [id number] SERENE CRANE M.D. at 1640 CC: [id number] DICTATION DATE: 09/13/16 1100 SUPERVISOR COIN MACHINE: 09/13/16 1224 [facility] IN [place] [id number] [place] [id number]
--- NOTE | 2016-09-20 17:41 | NUR ---
PATIENT SITTING UP IN BED EATING DINNER, DENIES ANY NEEDS. WILL CONT TO MONITOR
--- NOTE | 2016-09-20 19:23 | NUR ---
ASSESSMENT COMPLETE, RESTING ON LEFT SIDE. IV TO LEFT UPPER ARM WITH NS INFUSING AT KVO. DRSGS TO BILATERAL HEELS C/D/I. HEELS ELEVATED OFF OF BED. PT DENIES PAIN OR NEEDS, BED LOW, CL IN REACH.
--- NOTE | 2016-09-20 21:14 | NUR ---
HS MEDS GIVEN, BS 149, NO COVERAGE NEEDED, REPOSITIONED OT RIGHT SIDE, CALMOSEPTINE PLACED ON BUTTOCKS. HEELS REMIAN BRIDGED.
--- NOTE | 2016-09-21 01:13 | NUR ---
PT RESTING SOUNDLY WITHOUT C/O OR DISTRESS NOTED. CALL LIGHT IS WITHIN REACH. NO NEEDS VOICED. WILL MONITOR.
--- NOTE | 2016-09-21 02:10 | NUR ---
REPOSITIONED IN BED TO LEFT SIDE, CL IN REACH.
[2016-09-21 04:00] VITALS: BP 128/86
--- NOTE | 2016-09-21 07:10 | NUR ---
RECEIVED REPORT. ASSUMED CARE OF PATIENT. CALL LIGHT WITH IN REACH. 1ST STEP OVERLAY PATENT. PATIENT RESTING WITH EYES CLOSED ON RIGHT LATERAL SIDE AT THIS TIME. NO ACUTE DISTRESS. DRESSINGS INTACT TO BILATERAL HEELS.
[2016-09-21 07:23] LABS: ANION GAP 24.6 mmol/L (8-16); CALCIUM 7.4 mg/dL (8.5-10.1); CREATININE - SERUM 6.1 mg/dL (0.6-1.3); POTASSIUM - SERUM 4.6 mmol/L (3.5-5.1)
[2016-09-21 07:34] VITALS: BP 135/53
--- NOTE | 2016-09-21 09:49 | NUR ---
TURNED AND REPOSITIONED. CALMOSEPTINE APPLIED TO SACRUM/BUTTOCKS. PATIENT RESTING ON LEFT LATERAL SIDE AT THIS TIME. NO DISTRESS. CALL LIGHT WITHIN REACH.
--- NOTE | 2016-09-21 11:56 | NUR ---
FSBS 174. 2 UNITS HUMULIN INSULIN ADMINISTERED AT THIS TIME.
[2016-09-21 12:13] VITALS: BP 125/62
--- NOTE | 2016-09-21 14:47 | NUR ---
DIALYSIS NURSE AT BEDSIDE TO PROVIDE DIALYSIS TO PATIENT.
[2016-09-21 16:19] VITALS: BP 122/37
--- NOTE | 2016-09-21 17:47 | NUR ---
MEDICATED FOR PAIN AT THIS TIME. CONTINUES TO RECEIVE DIALYSIS AT BEDSIDE.
--- NOTE | 2016-09-21 18:42 | NUR ---
RESTING IN BED. CONTINUES TO RECEIVE DIALYSIS AT THIS TIME. NO DISTRESS.
--- NOTE | 2016-09-21 20:04 | NUR ---
ASSESSMENT COMPLETE, A&O, 02 AT 3 LITER VIA NC. IV TO LEFT UPPER ARM WITH NS INFUSING AT 30. LARGE DEEP TISSUE WOUND NOTED ON COCCYC/BUTTOCKS, CALMOSEPTINE APPLIED. DRSGS NOTED TO BLILATERAL HEELS, C/D/I. PT DENIES PAIN OR NEEDS, BED LOW, CL IN REACH.
[2016-09-21 20:49] VITALS: BP 118/57
--- NOTE | 2016-09-21 21:19 | NUR ---
HS MEDS GIVEN. BS 147, NO COVERAGE PER S/S. TYLENOL GIVEN FOR C/O PAIN. TOO EARLY FOR ULTRAM. DRSG TO RIGHT HEEL CHANGED, MAISHA W/D. PT UNALBE TO TOLERATED SECOND HEEL DRSG TO BE CHANGED AT THIS TIME, WILL ATTMEPT TO CHANGE LEFT HEEL DRSG LATER IN SHIFT.
--- NOTE | 2016-09-21 23:02 | NUR ---
MORTGAGE OPERATIONS MANAGER AT BED SIDE, BATH AND LINEN CHNAGE COMPLETE. TURNED TO RIGHT SIDE, PLACED PILLOW BEHIND BACK. FEET ELEVATED ON PILLOWS TO KEEP HEELS OFF OF BED.
--- NOTE | 2016-09-22 00:10 | NUR ---
PT RESTING WITH EYES CLOSED. RESP EVEN AND REGULAR. SR UP X2, CALL LIGHT WITHIN REACH.
[2016-09-22 00:36] VITALS: BP 107/49
--- NOTE | 2016-09-22 03:34 | NUR ---
RESTING WITH EYES CLOSED, RESPERTIONS EVEN, NO S/S DISTRESS NOTED.
[2016-09-22 04:39] VITALS: BP 113/53
[2016-09-22 06:49] LABS: BASOPHILS 0.4 % (0.0-2.0); EOSINOPHILS 0.9 % (0-7); HEMATOCRIT 26.6 % (42.0-54.0); HEMOGLOBIN 8.1 g/dL (13.5-17.5); IMMATURE GRANULOCYTES 0.9 % (0-5); LYMPHOCYTES 4.9 % (15-50); MCH 29.6 pg (26.0-34.0); MCHC 30.5 g/dL (31.0-37.0); MCV 97.1 fL (80.0-100.0); MEAN PLATELET VOLUME 10.7 fL (7.4-10.4); MONOCYTES 4.4 % (2-11); NEUTROPHILS 88.5 % (40-80); PLATELET COUNT 179 10x3/uL (130-400); RBC 2.74 10x6/uL (4.20-6.10); RDW 15.7 % (11.5-14.5)
[2016-09-22 07:01] LABS: CREATININE - SERUM 4.8 mg/dL (0.6-1.3); MAGNESIUM - SERUM 2.2 mg/dL (1.8-2.4); PHOSPHOROUS 6.3 mg/dL (2.5-4.9); VANCOMYCIN - RANDOM 20.6 ug/mL (10.0-20.0)
[2016-09-22 07:04] LABS: ANION GAP 18.2 mmol/L (8-16); CALCIUM 6.9 mg/dL (8.5-10.1); CARBON DIOXIDE 24.5 mmol/L (21.0-32.0); POTASSIUM - SERUM 3.7 mmol/L (3.5-5.1)
--- NOTE | 2016-09-22 07:48 | NUR ---
RECEIVED REPORT. ASSUMED CARE OF PATIENT AT THIS TIME. RESP EVEN AND UNLABORED. CALL LIGHT WITHIN REACH. 1ST STEP OVERLAY PATENT. IV FLUIDS KVO TO LEFT UPPER ARM. DRESSINGS INTACT TO BILATERAL HEELS. REPORTED THAT DRESSING CHANGES WERE ONLY COMPLETED TO ONE FOOT DUE TO THE AMOUNT OF PAIN PATIENT WAS EXPERIENCING AND ONLY HAS 50MG OF TRAMADOL ORDERED. NO ACUTE DISTRESS AT THIS TIME.
[2016-09-22 09:31] VITALS: BP 144/63
--- NOTE | 2016-09-22 09:45 | NUR ---
ATTEMPTED TO FEED PATIENT AM MEAL AND PATIENT REFUSING. INSTRUCTED PATIENT TO CALL US IF HE CHANGES HIS MIND AND DECIDES HE WANTS SOMETHING TO EAT.
--- NOTE | 2016-09-22 11:27 | NUR ---
FSBS 99. NO INSULIN COVERAGE REQUIRED PER SLIDING SCALE.
[2016-09-22 12:55] VITALS: BP 139/63
--- NOTE | 2016-09-22 14:21 | NUR ---
MEDICATED FOR PAIN PRIOR TO PROVIDING WOUND CARE TO BILATERAL HEELS. WOUND CARE TO BILATERAL HEELS COMPLETED AT THIS TIME. PATIENT TURNED AND REPOSITIONED. CALL LIGHT PLACED WITHIN REACH. PATIENT STATES HE IS COMFORTABLE AT THIS TIME. TOLERATED DRESSING CHANGE WELL. RIGHT HEEL WITH MORE EXTENSIVE DEBRIDEMENT THAN LEFT. DAMPENED DAKINS APPLIED ORDERD, PADDED WITH 4X4'S AND WRAPPED WITH KERLIX. BOTH HEEL HAVE DARK AREAS TO AREAS OF DEBRIDEMENT. FEET ARE BRIGDGED AND OFFLOADED, SUPPORTED WITH PILLOWS AND LEG ROLL PROTECTORS.
--- NOTE | 2016-09-22 14:25 | NUR ---
PATIENT RESTING ON LEFT LATERAL SIDE WITH EYES CLOSED AT THIS TIME. NO ACUTE DISTRESS.
--- NOTE | 2016-09-22 16:37 | NUR ---
FSBS 108. NO INSULIN ADMINISTERED PER SLIDING SCALE. PATIENT DID RECEIVE HUMULIN N AT THIS TIME.
[2016-09-22 16:59] VITALS: BP 136/64
--- NOTE | 2016-09-22 18:00 | NUR ---
PATIENT LYING IN BED WITH EYES OPEN, ATTENTION TOWARD TELEVSION. CALL LIGHT WITHIN REACH. 1ST STEP OVERLAY PATENT. NO DISTRESS. DENIES NEEDS.
--- NOTE | 2016-09-22 19:53 | NUR ---
RESUMED CARE OF PT, LYING IN BED WITH EYES CLOSED RESPIRAITONS EVEN AND UNLABORED ON LPM VIA NC. 80 PACED ON TELEMETRY. LEFT UPPER ARM INFUSING NS @ 30. 1ST OVERLAY INFLATED. NO NEEDS VOICED AT THIS TIME. WILL CONTINUE TO MONITOR. SEE NURSE ASSESSMENT. CALL LIGHT IN REACH.
[2016-09-22 21:36] VITALS: BP 131/81
--- NOTE | 2016-09-23 01:45 | NUR ---
BUPRRENEX 0.15MG IVP FOR PAIN DURING DRESSING CHANGE. LEFT FOOT DRESSING IS SATURATED IN BLOOD CONTAINING CLOTS, CLEANSED WITH WOUND AUDIT SPEC AND APPLIED DAKINS SOLUTION TO HEEL. RIGHT FOOT IS CONSIDERABLY MORE PAINFUL, BUT DRESSING IS LESS SATURATED. CALL LIGHT IN REACH. WILL CONTINUE TO MONITOR.
[2016-09-23 02:34] VITALS: BP 140/72
[2016-09-23 04:44] VITALS: BP 142/79
--- NOTE | 2016-09-23 06:44 | NUR ---
NO CHANGES FROM PREVIOUS ASSESSMENT, CALL LIGHT IN REACH. BUPRENEX GIVEN FOR FOOT PAIN
--- NOTE | 2016-09-23 07:30 | NUR ---
PT LEFT FOOT WAS FOUND IN POOL OF APPROX. 60 CC BLOOD AND DRESSING COMPLETELY SATURATED, FOOT WAS REDRESSED AT THIS TIME ORDERED. KARIME CALLED TO CONTINUE ULTRAMS AND INFORMED AT THIS TIME ABOUT FOOT. SHE STATED THAT SHE THOUGHT DR. HOUGH HAD MENTIONED SOMETHING ABOUT A WOUND VAC AND HAVING WOUND CARE TAKE CARE OF IT. WILL MENTION IT TO JESSICA GAUTAM WHEN SHE COMES IN. WILL CONTINUE TO MONITOR.
[2016-09-23 07:42] LABS: BASOPHILS 0.3 % (0.0-2.0); EOSINOPHILS 0.9 % (0-7); HEMATOCRIT 24.1 % (42.0-54.0); HEMOGLOBIN 7.7 g/dL (13.5-17.5); IMMATURE GRANULOCYTES 0.8 % (0-5); LYMPHOCYTES 4.8 % (15-50); MCH 30.4 pg (26.0-34.0); MCV 95.3 fL (80.0-100.0); MEAN PLATELET VOLUME 10.5 fL (7.4-10.4); MONOCYTES 4.6 % (2-11); NEUTROPHILS 88.6 % (40-80); PLATELET COUNT 179 10x3/uL (130-400); RBC 2.53 10x6/uL (4.20-6.10); RDW 15.4 % (11.5-14.5)
[2016-09-23 07:48] LABS: ANION GAP 20.1 mmol/L (8-16); CALCIUM 7.3 mg/dL (8.5-10.1); CARBON DIOXIDE 23.9 mmol/L (21.0-32.0); CREATININE - SERUM 5.8 mg/dL (0.6-1.3); MAGNESIUM - SERUM 2.2 mg/dL (1.8-2.4)
[2016-09-23 07:52] LABS: PHOSPHOROUS 7.9 mg/dL (2.5-4.9)
[2016-09-23 08:00] VITALS: BP 134/57
--- NOTE | 2016-09-23 10:12 | NUR ---
PT IS ALERT. NO CO PAIN AT THIS TIME. WILL CONTINUE TO MONITOR. NO OTHER NEEDS AT THIS TIME. ASSESSMENT DONE PER FLOWSHEET.
[2016-09-23 11:08] VITALS: BP 128/51
--- NOTE | 2016-09-23 12:01 | NUR ---
PER DR. HOUGH'S ORDERS APPLIED WOUND VAC/VERAFLOW TO BILATERAL HEELS. VERA FLOW WITH 1/2 STRENGTH DAKINS SOLUTION IS INSTILLING TO LEFT HEEL AND NORMAL WOUND VAC TO RIGHT HEEL WOUND. SETTINGS ARE -125MMHG MODERATE CONTINUOUS WITH DAKINS 1/2 STRENGTH INSTILLING Q 3.5 HOURS/SOAK TIME 10 MIN (LEFT HEEL ONLY). SURGICAL SHARPS DEBRIDEMENT PERFORMED ON 09/10/[address] HOUGH IN OR. NOTED AN UNSTAGEABLE PRESSURE INJURY TO COCCYX/SACRUM. COVERED WITH BLACK ESCHAR. NO DRAINAGE OR ODOR NOTED. PT IS ON A TURN Q 2 HOURS SCHEDULE. HEELS ELEVATED. WOUND CARE WILL CONTINUE MONITORING.
--- NOTE | 2016-09-23 13:19 | NUR ---
NO SS OF DISTRESS AT THIS TIME. NO OTHER NEEDS AT THIS TIME. WILL CONTINUE TO MONITOR.
[2016-09-23 15:09] VITALS: BP 143/66
--- NOTE | 2016-09-23 19:30 | NUR ---
PRBC INFUSING W/O DIFF VIA PUMP TO LEFT UPPER ARM IV SITE WITH NO R/S NOTED AT SITE. HOB UP SRUP X2, C/L IN REACH. IN CONTACT ISOLATION PER HOSPITAL PROTOCOL FOR MRSA IN BLOOD AND URINE. ON FIRST STEP MATTRESS, RESP UNLAB WITH O2 @2L NC IN PLACE BILAT HEELS WITH WOUND VAC IN PLACE. TELEMETRY IN PLACE SHOWING HR PACED PER QUANTITATIVE ANALYST MARKETING. RT AVFISTULA WITH + BRUIT AND THRILL NOTED. CALMSEPTINE AND BUTT BALM NOTED TO ESCAR ON BUTTOCKS. WILL NOT STAY OFF BACK. CONTINUE TO MONITOR.
--- NOTE | 2016-09-23 20:30 | NUR ---
PRBC UNIT INFUSION COMPLETE. JASON WELL. NO S/S OF ADVERSE REACTIONS NOTED AT THIS TIME. HOB UP SR UP X2, C/L IN REACH. CONTINUE TO MONITOR,
[2016-09-23 21:31] VITALS: BP 136/93
--- NOTE | 2016-09-23 23:00 | NUR ---
BATHED AND LINEN CHANGE DONE AT THIS TIME. JASON WELL.VOICES NO C/O PAIN OR DISCOMFORT AT THIS TIME. HOB UP SR UP X2, C/L IN REACH. CONTINUE TO MONITOR.
[2016-09-24 00:11] VITALS: BP 126/55
[2016-09-24 06:33] VITALS: BP 115/52
[2016-09-24 07:54] VITALS: BP 137/65
--- NOTE | 2016-09-24 11:11 | NUR ---
Patient Name: RACHNA TAN Encounter No: [id number] : 1935 Primary Insurance: HUMANA CHOICE PPO MCR ADVANT Anticipated DC Date: 09-25-2016 Planned Disposition: Correction Facility External Planned Provider: [facility], MEDICARE REHAB BED DCP follow-up note: CM RECEIVED CALL FROM TATUM, CLINICAL LIAISON FOR [facility], , WHO REPORTED SHE IS WAITING ON INSURANCE AUTHORIZATION FROM PT'S INSURANCE COMPANY. CM RECEIVED ORDER FOR LTACH EVALUATION. CM SPOKE TO PT IN ROOM, DISCUSSED LTACH ORDER AND AVAILABILITY. PT STATES THAT HE PREFERRED TO GO TO [facility] FOR REHAB SERVICES IF THEY WILL ACCEPT HIM. IF PT NEEDS LTACH AND IS DENIED REHAB AT [facility], PT WOULD LIKE REFERRAL SENT TO [facility] IN [place]. CM CALLED JOANIE WIGGINS, CLINICAL LIAISON FOR [facility], , SPOKE TO LOTUS AND FAXED REFERRAL TO [facility] AT [phone]. CM WAITING LTACH ADMISSION DETERMINATION FROM [facility] AND INSURANCE AUTHORIZATION FOR [facility] LONG-TERM FACILITY. Aba Egan, CASE MANAGEMENT
[2016-09-24 12:01] VITALS: BP 148/64
--- NOTE | 2016-09-24 13:00 | NUR ---
NO SS OF DISTRESS WILL CONTINUE TO MONITOR.
--- NOTE | 2016-09-24 14:15 | NUR ---
PT IS ALERT. ASSESSMENT DONE PER FLOWSHEET. NO CO PAIN AT THIS TIME. WILL CONTINUE TO MONITOR.
--- NOTE | 2016-09-24 14:59 | NUR ---
Nutrition follow-up: Diet: Renal ADA PO intake ~20% average of last 9 meals +BM PO intake remains very poor; recommend starting nutrition support; NGT vs PEG tube placement with TF started if physician, family, pt agree. RDN following.
[2016-09-24 16:01] VITALS: BP 109/60
--- NOTE | 2016-09-24 16:59 | OP ---
PATIENT NAME: RACHNA TAN MEDICAL RECORD: [id number] :[birth year] LOCATION:D. 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 SURGEON: Joni Hough MD ANESTHESIA: General with LMA per ELECTRIC KNIFE OPERATOR. REFERRING PHYSICIAN: Nicola Tyson MD PREOPERATIVE NOTE: Mr. 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 He has severe bilateral heel and sacral decubiti. He has had Gram-positive organisms on blood culture and he is brought to the OR to debride the heel decubiti. DESCRIPTION OF PROCEDURE: Under anesthesia with the patient in left lateral decubitus position and prepped and draped in a sterile manner, the necrotic eschars were sharply excised with a scalpel from both wounds. Also, epidermolysis was debrided by cutting back the peeling epidermis. Hemostasis was obtained with electrocautery. Note, the wounds bled well and there was obviously sufficient tissue perfusion and these are nonischemic lesions. There was jose purulent matter or pus in the left heel decubitus. This was tracking up under the skin on the posterior aspect of the ankle and along the Achilles tendon. This area was opened partially to facilitate drainage. It was debrided sharply and also gauze debridement was performed. The wounds measured 6 x 8 on the left and about 0.5 cm in depth and on the right, the wound was 4 x 4 cm of similar depth. On neither side did I encounter bone or periosteum, so I think these are stage III at this point. Dakin's quarter strength solution wet-to-dry dressings were applied to both and the patient was awakened and taken to the recovery room in stable condition. There was minimal blood loss during the procedure and all sponges, instruments, and needles were accounted for. No drain was used. I did not submit any tissue for histopathology or other pathology examination. I did submit cultures for aerobic and anaerobic organisms and a swab for Gram stain of the pus on the left heel wound. PLAN: Basically, continue his same preoperative care. We will ask the wound care nurse to reevaluate and to begin wound VAC dressings with Dakin's irrigation at least on the left heel. TRANSINT:[id number] Voice Confirmation ID: [id number] DOCUMENT ID: [id number] OPERATIVE REPORT [id number] RACHNA TAN JAMES MD at 1659 CC: [id number] DICTATION DATE: 09/20/16 1510 CUPBOARD BUILDER: 09/20/16 1604 ADM IN [place] [id number] [place] [address]
--- NOTE | 2016-09-24 20:33 | NUR ---
Mr. Arredondo had bedside hemodialysis today via his right upper arm av graft from 1732 until 2032. Average blood flow was 300 mls/minute per orders. Zero net removed due to cramping. Post vital signs were: B/P: 138/48, HR: 81, Temp: 97.2, Resps:18.
[2016-09-24 21:39] VITALS: BP 131/50
--- NOTE | 2016-09-24 23:25 | NUR ---
BS 133, NO COVERAGE NEEDED PER S/S.
[2016-09-25 00:46] VITALS: BP 123/54
--- NOTE | 2016-09-25 02:38 | NUR ---
RESTING WITH EYES CLOSED, RESPERATIONS EVEN, NO S/S DISTRESS NOTED.
--- NOTE | 2016-09-25 02:49 | NUR ---
ULTRAM 1 TAB GIVEN AT PT REQUEST FOR C/O BACK PAIN.
[2016-09-25 04:00] VITALS: BP 137/69
[2016-09-25 06:17] LABS: BASOPHILS 0.2 % (0.0-2.0); EOSINOPHILS 0.4 % (0-7); HEMATOCRIT 25.1 % (42.0-54.0); IMMATURE GRANULOCYTES 0.5 % (0-5); LYMPHOCYTES 4.7 % (15-50); MCH 29.9 pg (26.0-34.0); MCHC 31.9 g/dL (31.0-37.0); MCV 93.7 fL (80.0-100.0); MEAN PLATELET VOLUME 10.5 fL (7.4-10.4); MONOCYTES 4.2 % (2-11); PLATELET COUNT 159 10x3/uL (130-400); RBC 2.68 10x6/uL (4.20-6.10); RDW 15.7 % (11.5-14.5); WBC 14.3 10x3/uL (4.8-10.8)
[2016-09-25 07:00] LABS: ANION GAP 17.2 mmol/L (8-16); CALCIUM 7.2 mg/dL (8.5-10.1); CARBON DIOXIDE 25.4 mmol/L (21.0-32.0); CREATININE - SERUM 4.5 mg/dL (0.6-1.3); PHOSPHOROUS 6.1 mg/dL (2.5-4.9); POTASSIUM - SERUM 3.6 mmol/L (3.5-5.1); VANCOMYCIN - RANDOM 17.2 ug/mL (10.0-20.0)
[2016-09-25 09:21] VITALS: BP 143/64
--- NOTE | 2016-09-25 12:02 | NUR ---
[facility] - Patient's OPHD clinic is [facility] on MWF 2nd shift (approx 11:00). Medical records were forwarded the unit earlier in admission and updated records were sent again today. Will cont to monitor for further orders regarding OPHD needs. LIA PRL.
--- NOTE | 2016-09-25 12:23 | NUR ---
Patient Name: RACHNA TAN Encounter No: [id number] : 1935 Primary Insurance: HUMANA CHOICE PPO MCR ADVANT Anticipated DC Date: 09-25-2016 Planned Disposition: Brand Coordinator Acute Care Facility External Planned Provider: KRANTHI COOK DCP follow-up note: CM RECEIVED SECOND ORDER FOR LTACH EVALUATION. CM SPOKE TO VALVE FITTER WHO CALLED AND SPOKE TO DR. CHUA TO INFORM THAT LTACH ASSESSMENT FOR ADMISSION HAD BEEN INITIATED ON 09-24-16. ADVISED THAT NEED FOR IV VANC WILL BE FOR APPROXIMATELY 6 WEEKS. JOANIE WIGGINS, CLINICAL LIAISON FOR [facility], , ARRIVED AT HOSPITAL TO FOLLOW UP ON HER INITIAL EVALUATION YESTERDAY. JOANIE HAS MET WITH PT AND EDUCATED PT ON LTACH SERVICES YESTERDAY AND PT IS IN AGREEMENT WITH PLACEMENT AT [facility] FOR LTACH SERVICES. CM PROVIDED UPDATED INFORMATION FOR LTACH ASSESSEMENT AND INSURANCE AUTHORIZATION. JOANIE ADVISED THAT IF DENIED BY INSURANCE, SHE WILL REQUEST DOCTOR TO DOCTOR CONSULT TO APPEAL FOR LTACH SERVICES. CM WAITING LTACH ADMISSION DETERMINATION FROM [facility] AND INSURANCE AUTHORIZATION FOR EITHER LTACH OR [facility]. Aba Egan, CASE MANAGEMENT
[2016-09-25 12:28] VITALS: BP 133/56
--- NOTE | 2016-09-25 13:13 | NUR ---
WOUND CARE / WOUND VAC DRESSING CHANGES / REASSESSMENT WOUND VAC DRESSING CHANGE WOUND TYPE: SURGICAL DEBRIDEMENT BILATERAL HEELS WOUND LOCATION: BILATERAL HEELS WOUND AGE IN MONTHS: DEBRIDEMENT ATTEMPTED IN LAST 10 DAYS? DATE/TYPE:SHARPS DEBRIDEMENT 09/10/[address] HOUGH SERIAL DEBRIDEMENTS REQUIRED? UNKNOWN MEASUREMENT DATE: 09/25/16 #1 LEFT HEEL: 5.5CM X 6CM X 0.2CM #2 RIGHT HEEL: 8CM X 5CM X 0.5CM FULL THICKNESS? YES MUSCLE, TENDON OR BONE EXPOSED? NO UNDERMINING? NO TUNNELING/SINUS? NO APPEARANCE OF WOUND BED : #1 LEFT HEEL: PINK/RED #2 RIGHT HEEL: PINK WITH BROWN EXUDATE (AMOUNT, COLOR, ODOR): SMALL, SEROUS NO ODOR FOAM TYPE: BLACK # OF PIECES USED: #1 ONE PIECE FOAM TYPE: BLACK # OF PIECES USED: #2 ONE PIECE EDUCATION: EFFECTS OF PRESSURE ON HEELS/BOTTOM PT VOICED UNDERSTANDING REASSESSMENT OF UNSTAGEABLE PRESSURE INJURY TO SACRUM/COCCYX MEASURES 10.5CM X 8CM X ESCHAR PT BEING TURNED ON Q2 SCHEDULE. WILL CONTINUE TO MONITOR.
[2016-09-25 16:15] VITALS: BP 140/60
[2016-09-25 20:53] VITALS: BP 139/63
--- NOTE | 2016-09-25 23:28 | NUR ---
WINDOW CASER AT BED SIDE, BATH AND LINEN CHANGE COMPLETE.
--- NOTE | 2016-09-26 00:19 | NUR ---
RESTING WITH EYES CLOSED, RESPERATIONS EVEN, NO S/S DISTRESS NOTED.
[2016-09-26 00:41] VITALS: BP 119/58
--- NOTE | 2016-09-26 03:59 | NUR ---
BLOCK BOLTER MULE OPERATOR AT BEDSIDE TO OBTAIN VITALS, CALL LIGHT IN REACH. WILL CONTINUE WITH PLAN OF CARE.
[2016-09-26 05:34] VITALS: BP 119/56
[2016-09-26 06:56] LABS: ANION GAP 14.9 mmol/L (8-16); CALCIUM 7.4 mg/dL (8.5-10.1); CARBON DIOXIDE 27.8 mmol/L (21.0-32.0); CREATININE - SERUM 5.6 mg/dL (0.6-1.3); PHOSPHOROUS 7.2 mg/dL (2.5-4.9); POTASSIUM - SERUM 3.7 mmol/L (3.5-5.1); VANCOMYCIN - RANDOM 21.2 ug/mL (10.0-20.0)
[2016-09-26 07:05] LABS: BASOPHILS 0.2 % (0.0-2.0); EOSINOPHILS 0.7 % (0-7); HEMATOCRIT 25.3 % (42.0-54.0); IMMATURE GRANULOCYTES 0.4 % (0-5); LYMPHOCYTES 4.5 % (15-50); MCH 29.9 pg (26.0-34.0); MCHC 31.6 g/dL (31.0-37.0); MCV 94.4 fL (80.0-100.0); MEAN PLATELET VOLUME 10.1 fL (7.4-10.4); MONOCYTES 6.5 % (2-11); NEUTROPHILS 87.7 % (40-80); PLATELET COUNT 153 10x3/uL (130-400); RBC 2.68 10x6/uL (4.20-6.10); WBC 12.7 10x3/uL (4.8-10.8)
--- NOTE | 2016-09-26 07:36 | NUR ---
0655-LAYING ON LEFT SIDE WITH HOB AT 30 DEGREES, IN CONTACT ISOLATION FOR MRSA BLOOD AND URINE. ON 1ST STEP OVERLAY, TURN EVERY 2 HOURS. ON 2L PER NC, LEFT UPPER ARM WITH NS INFUSING AT KVO. RIGHT AVF, + RUIT AND THRILL. PACED ON HEART MONITOR, HR 79. PATIENT IS DNR CODE STATUS. WILL CONTINUE TO MONITOR.
[2016-09-26 09:12] VITALS: BP 127/54
--- NOTE | 2016-09-26 14:44 | TEE ---
PATIENT:RACHNA TAN N MEDICAL RECORD: [id number] LOCATION:D. D.213 AGE OF PATIENT: 81 ADMISSION DATE: 09/11/16 SEX: M REFERRING PHYSICIAN: INTERPRETING PHYSICIAN: JAQUELIN FRANCIS MD TRANSESOPHAGEAL ECHOCARDIOGRAM MARY CHARGE Y INDICATIONS: SBE ASSESS FOR VEGATATIONS ON AORTIC AND TRICSUPID VALVES PREMEDICATIONS: PATIENT'S RESPONSE PROCEDURE DOPPLER MEASUREMENTS: LVIT LA PA 126 RA LVOT 86 RVOT 88 Asc. Ao 122 AV Gradient Peak 6.0 AV Mean 2.9 AV Area 1.5 MV Gradient Peak 4.5 MV Mean 1.3 MV Area INTERPRETATION: Doppler: 2-D: NO VEGATATIONS NOTED ON VAVLES COLOR FLOW DOPPLER MILD MR,WHIF AI, MILD + TR NORMAL SALINE STUDY: MISCELLANOUS: DIAGNOSIS: PLAN: Loom Fixer Supervisor:[employer] [facility] [employer] [facility] Teacher: Mecca VERMA COMMENTS: DATE OF SERVICE: 09/19/2016 Transesophageal Note DESCRIPTION OF PROCEDURE: After general sedation via anesthesia, a transesophageal Omniplane probe placed in the distal esophagus and proximal stomach without difficulty. TRANSESOPHAGEAL ECHOCARDIOGRAM REPORT [id number] RACHNA TAN FINDINGS: LVH is present. LV internal dimension is normal. Wall motion is normal. EF is greater than 85%. Aortic valve is well visualized, this is tricuspid with good excursion. No evidence of vegetation. Left atrium appears normal. Left atrial appendage appears normal with good contractility. No evidence of thrombus. Mitral valve is thickened with no evidence of vegetation. No more than mild MR. Right-sided chamber is grossly normal. Tricuspid valve is well visualized. This has some redundancy, but no evidence of vegetation. No more than mild MR. At the end of the procedure, the probe was turned posteriorly and this showed minimal atherosclerotic debris in the descending aorta. TRANSINT:[id number] Voice Confirmation ID: [id number] DOCUMENT ID: [id number] at 1444 CC: [id number] DICTATION DATE: 09/19/16 1434 DESIGN ENGINEERING TECHNICIAN: 09/19/16 2145 ADM IN [facility] [address] [place] [address]
--- NOTE | 2016-09-26 15:08 | NUR ---
DIALYSIS TREATMENT INITIATED VIA RIGHT AVG AT 1156 AND DISCONTINUED AT 1457. REMOVED 1000ML OF FLUID AND PROCESSED 58.6L OF BLOOD. PATIENT RESTED QUIETLY THROUGHOUT TREATMENT. POST VITALS: BP: 163/60, HR: 76, TEMP: 97.7, RESP: 14.
--- NOTE | 2016-09-26 15:15 | NUR ---
Patient Name: RACHNA TAN Encounter No: [id number] : 1935 Primary Insurance: [employer] CHOICE PPO MCR ADVANT Anticipated DC Date: 09-27-2016 [facility] Disposition[facility] External Planned Provider: KARLOS CAAL DCP follow-up note: CM RECEIVED CALL FROM [employer] GAS DERRICK OPERATOR, ELOISA CONDON, , EXT [phone] WHO REPORTED THAT PT HAS BEEN DENIED LTACH CARE BY [facility] WITH RECOMMENDATION FOR INTERMEDIATE PLACEMENT. THE DOCTOR MAY REQUEST PEER TO PEER CONFERENCE WITH [facility] PHYSICIAN BY SUPPLYING CONTACT NUMBER TO NURSE ELOISA SO THAT THE [facility] DOCTOR MAY CALL FOR PEER TO PEER. CM RECEIVED CALL FROM JOANIE WIGGINS, CLINICAL LIAISON FOR [facility], , WHO WAS MADE AWARE OF THE DENIAL AND FEELS THAT PT WOULD BENEFIT GREATLY FROM LTACH SERVICES OPPOSED TO INTERMEDIATE AND WOULD REQUEST TREATING DOCTOR CONTACT INSURANCE DOCTOR FOR APPEAL. CM RECEIVED 7 PAGE FAX DENIAL, PROVIDED COPY TO PT AND PT'S SPOUSE, SCANNED INTO CASE MANAGEMENT DATABASE. DOCTOR MAY REQUEST PEER TO PEER CONFERENCE WITH [facility] PHYSICIAN BY SUPPLYING CONTACT NUMBER TO [employer] MACHINE OPERATOR WHO WILL PROVIDE IT TO [facility] NURSE ELOISA CONDON, , EXT [phone] SO THAT THE [facility] DOCTOR MAY CALL FOR PEER TO PEER. Aba Egan, CASE MANAGEMENT
[2016-09-26 16:02] VITALS: BP 163/60
--- NOTE | 2016-09-26 19:16 | NUR ---
STILL IN ISOLATION. HAD DIALYSIS TODAY WITH 1L PULLED OFF. DENIES ANY NEEDS AT PRESENT TIME. WILL CONTINUE TO MONITOR OFTEN. STILL WITH BILATERAL WOUND VACS TO HEELS.
[2016-09-27 02:28] VITALS: BP 157/62
[2016-09-27 05:21] LABS: BASOPHILS 0.3 % (0.0-2.0); EOSINOPHILS 0.6 % (0-7); HEMATOCRIT 27.1 % (42.0-54.0); HEMOGLOBIN 8.5 g/dL (13.5-17.5); IMMATURE GRANULOCYTES 0.3 % (0-5); LYMPHOCYTES 5.3 % (15-50); MCH 30.2 pg (26.0-34.0); MCHC 31.4 g/dL (31.0-37.0); MEAN PLATELET VOLUME 10.1 fL (7.4-10.4); MONOCYTES 6.3 % (2-11); NEUTROPHILS 87.2 % (40-80); PLATELET COUNT 183 10x3/uL (130-400); RBC 2.81 10x6/uL (4.20-6.10); RDW 16.1 % (11.5-14.5); WBC 10.8 10x3/uL (4.8-10.8)
[2016-09-27 05:23] LABS: MCV 96.4 fL (80.0-100.0)
[2016-09-27 05:41] LABS: ANION GAP 13.4 mmol/L (8-16); CARBON DIOXIDE 30.4 mmol/L (21.0-32.0); PHOSPHOROUS 5.4 mg/dL (2.5-4.9); POTASSIUM - SERUM 3.8 mmol/L (3.5-5.1); VANCOMYCIN - RANDOM 17.4 ug/mL (10.0-20.0)
[2016-09-27 08:10] VITALS: BP 126/49
--- NOTE | 2016-09-27 11:04 | NUR ---
Patient Name: RACHNA TAN Encounter No: [id number] : 1935 Primary Insurance: [employer] CHOICE PPO MCR ADVANT Anticipated DC Date: 09-27-2016 Planned Disposition[facility] External Planned Provider: KRANTHI COOK DCP follow-up note: CM RECEIVED PHONE NUMBER FROM DR. CHUA, CALLED [facility] NURSE ELOISA CONDON, , EXT [phone] AND PROVIDED PHONE NUMBER FOR DR. CHUA. ELOISA INFORMED CM THAT DR. CHUA WILL NEED TO [facility], , FOR PEER TO PEER APPEAL FOR LTACH DENIAL. CM PAGED DR. CHUA AND CALLED DR. CHUA, LEAVING DETAILED MESSAGE WITH DR. LEX HICKMAN OF [facility]'S PHONE NUMBER FOR PEER TO PEER: [phone]. Aba Egan, CASE MANAGEMENT
--- NOTE | 2016-09-27 11:28 | NUR ---
Nutrition Follow Up: Chart reviewed. Pt with wound vacs to bilateral heels. Per MD note sacral decubitus healing well. Diet: Renal ADA PO Intake: 22% (6 meal avg) +BM 09/27/16 I=O Wt gain of 28# since admit? Labs noted - BUN, Cr, Phos elevated Meds: Humulin, Vit B, Reglan, Albumin Pt continues with very poor po intake. Pt is not meeting est nutritional needs. Rec begin nutritional support via PEG vs NGT if pt/MD/family agrees. Will send Raphael BID to promote wound healing. RD following.
[2016-09-27 12:14] VITALS: BP 148/58
--- NOTE | 2016-09-27 14:56 | NUR ---
WOUND VAC DRESSING CHANGE WOUND TYPE: SURGICAL DEBRIDEMENT OF ST 3 PRESSURE INJURIES/KATIE HEELS WOUND LOCATION: BILATERAL HEELS WOUND AGE IN MONTHS: DEBRIDEMENT ATTEMPTED IN LAST 10 DAYS? DATE/TYPE: SERIAL DEBRIDEMENTS REQUIRED? MEASUREMENT DATE: 09/28/16 #1 LEFT HEEL: 5.5CM X 6CM X 0.2CM #2 RIGHT HEEL: 8CM X 5CM X 0.5CM FULL THICKNESS? YES MUSCLE, TENDON OR BONE EXPOSED? NO UNDERMINING? NO TUNNELING/SINUS? NO APPEARANCE OF WOUND BED : LEFT-PINK/RED RIGHT PINK/BROWN EXUDATE (AMOUNT, COLOR, ODOR): SMALL, SEROUS NO ODOR FOAM TYPE: BLACK # OF PIECES USED: LEFT-ONE PIECE FOAM TYPE: BLACK # OF PIECES USED: RIGHT-ONE PIECE CONTINUES ON VERAFLO WITH 1/2 STRENGTH DAKINS INSTILLING Q 3.5 HOURS, SOAKING FOR 10 MINUTES. -125MMHG, MOD/CONTINUOUS UNSTAGEABLE PRESSURE INJURY TO SACRUM/COCCYX 10.5CM X 8CM X ESCHAR. PT IS ON A TURN SCHEDULE BUT CONTINUES TO REPOSITION HIMSELF TO HIS BACK.
[2016-09-27 15:54] VITALS: BP 121/63
--- NOTE | 2016-09-27 19:25 | NUR ---
ALERT/AWAKE DENIES PAIN OR ANY NEEDS. SHIFT ASSESSMENTS COMPLETED. RIGHT UP FISTULA HAD SOME BLOOD OOZING FROM IT, CLEANED WITH WOUND PIPE FITTER SUPERVISOR MAINTENANCE, APPLIED 4X4'S/TAPE. WILL CONT TO MONITOR. WOUND VAC TO BILATERAL HEELS INTACT. IN CONTACT ISOLATION. WILL CONT TO MONITOR CLOSELY.
[2016-09-27 20:00] VITALS: BP 137/57
[2016-09-28] VITALS: BP 154/66
--- NOTE | 2016-09-28 00:30 | NUR ---
BABY REGISTRY SALES CONSULTANT PRESENT IN ROOM. DENIES ANY NEEDS OR DISCOMFORTS.
--- NOTE | 2016-09-28 04:13 | NUR ---
WOUND VAC SHOWING LEAK. REINFORCED WITH CLEAR DRESSING IN WOUND VAC KIT.
[2016-09-28 06:29] LABS: BASOPHILS 0.3 % (0.0-2.0); EOSINOPHILS 0.5 % (0-7); HEMATOCRIT 28.1 % (42.0-54.0); HEMOGLOBIN 8.8 g/dL (13.5-17.5); IMMATURE GRANULOCYTES 0.4 % (0-5); LYMPHOCYTES 5.7 % (15-50); MCH 30.2 pg (26.0-34.0); MCHC 31.3 g/dL (31.0-37.0); MCV 96.6 fL (80.0-100.0); MEAN PLATELET VOLUME 10.3 fL (7.4-10.4); MONOCYTES 4.5 % (2-11); NEUTROPHILS 88.6 % (40-80); PLATELET COUNT 187 10x3/uL (130-400); RBC 2.91 10x6/uL (4.20-6.10); WBC 11.1 10x3/uL (4.8-10.8)
[2016-09-28 06:51] LABS: ANION GAP 17.1 mmol/L (8-16); CALCIUM 7.6 mg/dL (8.5-10.1); CARBON DIOXIDE 26.1 mmol/L (21.0-32.0); POTASSIUM - SERUM 4.2 mmol/L (3.5-5.1); VANCOMYCIN - RANDOM 15.7 ug/mL (10.0-20.0)
[2016-09-28 06:54] LABS: PHOSPHOROUS 7.5 mg/dL (2.5-4.9)
--- NOTE | 2016-09-28 07:30 | NUR ---
ASSESSMENT DONE. PT A/O. DENIES NEEDS. DENIES DISCOMFORT. WOUND VAC TO BILATERAL HEELS WITHOUT LEAKS. ASSISTED PATENT DRAFTER WITH REPOSITIONING PT. CALL LIGHT WITH IN REACH. WILL CONT. TO MONITOR.
[2016-09-28 08:12] VITALS: BP 135/52
--- NOTE | 2016-09-28 09:15 | NUR ---
PT INCONT OF STOOL. COURTESY CLERK AND NURSE CLEANED PT, AND CHANGED LINENS. CALMOSEPTINE APPLIET TO COCCYX. PT TOLERATED WELL. CALL LIGHT WITH IN REACH. WILL CONT. TO MONITOR.
--- NOTE | 2016-09-28 10:16 | NUR ---
RESTS ON 1ST STEP MATRESS IN ISOLATION ROOM. CALL LIGHT IN REACH. WILL MONITOR NEEDS.
[2016-09-28 12:03] VITALS: BP 154/65
[2016-09-28 16:22] VITALS: BP 153/63
--- NOTE | 2016-09-28 17:33 | NUR ---
PT GETTING DIALYSIS IN ROOM. NO DISTRESS NOTED. CALL LIGHT WITH IN REACH. WILL CONT. TO MONITOR.
--- NOTE | 2016-09-28 18:19 | NUR ---
HEMODIALYSIS COMPLETED, NET FLUID REMOVAL OF 2 LITERS. HAD TO STOP TX AND RETURN BLOOD HALF WAY THROUGH AFTER CLOTTING OF THE VENOUS PRESSURE GAUGE LINE...PATIENT FORGETS AND BENDS HIS ARM CAUSING PRESSURES TO ALARM AND MACHINE TO STOP RUNNING. RESTRUNG AND FINISHED TX.
[2016-09-28 21:48] VITALS: BP 135/57
--- NOTE | 2016-09-28 22:52 | NUR ---
PT LAYING IN BED DIALYSIS COMPLETED. PT APPERS TO BE CONFUSED TO SITUATION AND REORINATED TO SITUATION PT VERBALIZED UNDERSTANDING. NO DISTRESS OBSERVED WOUND VAC TO BILATERAL HEELS IN PLACE AND SUCTION SET TO CONTINUIOS IVP INFUSING AT 10ML/HR AND NO INFULTRATION OR REDNESS OBSERVED WILL MONITOR
[2016-09-29 00:30] VITALS: BP 120/60
[2016-09-29 04:30] VITALS: BP 147/58
[2016-09-29 08:01] VITALS: BP 158/76
--- NOTE | 2016-09-29 09:20 | NUR ---
D/C PTS L.UPPER ARM PIV R/T IT BEING OUTDATED AND LOOKED IRRITATED AT SITE. CLEANSED SITE AND APPLIED BAND-AID. PT VOICED THANKS AND STATED IT FELT BETTER WITHOUT IT. PT HAS NO IV MEDICATIONS OR FLUIDS ORERED AND NO REASON FOR NEW IV.
[2016-09-29 09:43] LABS: BASOPHILS 0.1 % (0.0-2.0); EOSINOPHILS 0.1 % (0-7); HEMATOCRIT 30.2 % (42.0-54.0); HEMOGLOBIN 9.3 g/dL (13.5-17.5); IMMATURE GRANULOCYTES 0.2 % (0-5); LYMPHOCYTES 3.3 % (15-50); MCH 30.4 pg (26.0-34.0); MCHC 30.8 g/dL (31.0-37.0); MEAN PLATELET VOLUME 9.9 fL (7.4-10.4); MONOCYTES 5.1 % (2-11); NEUTROPHILS 91.2 % (40-80); PLATELET COUNT 220 10x3/uL (130-400); RBC 3.06 10x6/uL (4.20-6.10); RDW 16.4 % (11.5-14.5)
[2016-09-29 09:44] LABS: MCV 98.7 fL (80.0-100.0); WBC 14.4 10x3/uL (4.8-10.8)
[2016-09-29 10:04] LABS: % SATURATION 16 % (15-55); IRON 28 ug/dl (35-150); TOTAL IRON BIND CAPACITY 167 ug/dl (260-445); UNSAT IRON BIND CAPACITY 139 ug/dl (150-375)
[2016-09-29 10:11] LABS: ALBUMIN 2.2 g/dL (3.4-5.0); ANION GAP 18.6 mmol/L (8-16); BILIRUBIN - TOTAL 0.66 mg/dL (0.2-1.3); CALCIUM 8.5 mg/dL (8.5-10.1); CARBON DIOXIDE 27.2 mmol/L (21.0-32.0); CREATININE - SERUM 4.2 mg/dL (0.6-1.3); MAGNESIUM - SERUM 2.1 mg/dL (1.8-2.4); PHOSPHOROUS 5.8 mg/dL (2.5-4.9); POTASSIUM - SERUM 3.8 mmol/L (3.5-5.1); PROTEIN - SERUM 6.9 g/dL (6.4-8.2); T4 THYROXIN - FREE 1.11 ng/dL (0.76-1.46)
[2016-09-29 12:00] VITALS: BP 147/69
[2016-09-29 14:00] VITALS: BP 142/62
--- NOTE | 2016-09-29 17:29 | NUR ---
FSBS 88 ENCOURAGED BETTER INTAKE AND ASSISTED WITH DINNER TRAY TO MAKE SURE HE ATE SOME. HELD SS INSULIN WELL SCHEDULED 15 UNITS OF NPH. PT IS RESTING QUIETLY IN BED, REFUSED TO DRINK HIS RENVELA GETTING TIRED OF IT. PT DENIES ANY FURTHER NEEDS AT THIS TIME. RODENT EXTERMINATOR AT BEDSIDE TO FURTHER ASSIST PT WITH EATING. WILL CTM.
[2016-09-29 20:30] VITALS: BP 140/60
--- NOTE | 2016-09-29 22:57 | NUR ---
RESUMED CARE OF PT AT THIS TIME REPORT RECIVED FROM FRANCES LOPEZ NO DISTRESS OBSERVED PT EYES CLOSED AND PT APPERS TO BE SLEEPING RESPERATIONS EVEN AND UNLABORED ON ROOM AIR WILL MONITOR
[2016-09-30 00:30] VITALS: BP 145/73
--- NOTE | 2016-09-30 01:27 | NUR ---
PT LAYING IN BED EYES CLOSED PT APPERS TO BE SLEEPING NO DISTRESS OBSERVED OR NOTED AT THIS TIME CALL LIGHT IN REACH SRX2 BED LOW AND LOCKED WILL MONITOR
[2016-09-30 04:30] VITALS: BP 150/68
[2016-09-30 06:29] LABS: BASOPHILS 0.2 % (0.0-2.0); EOSINOPHILS 0.1 % (0-7); HEMOGLOBIN 9.2 g/dL (13.5-17.5); IMMATURE GRANULOCYTES 0.3 % (0-5); LYMPHOCYTES 4.1 % (15-50); MCH 30.1 pg (26.0-34.0); MCHC 30.7 g/dL (31.0-37.0); MEAN PLATELET VOLUME 10.4 fL (7.4-10.4); MONOCYTES 5.1 % (2-11); NEUTROPHILS 90.2 % (40-80); PLATELET COUNT 256 10x3/uL (130-400); RBC 3.06 10x6/uL (4.20-6.10); RDW 16.3 % (11.5-14.5); WBC 14.3 10x3/uL (4.8-10.8)
--- NOTE | 2016-09-30 06:50 | NUR ---
RECEIVED REPORT FROM MENTAL HEALTH CONSULTANT NURSE, GERRY LOPEZ. PT IN BED, SLEEPING AT THIS TIME.CALL LIGHT IN REACH, NAD NOTED, WILL CONTINUE TO MONITOR.
[2016-09-30 06:56] LABS: ANION GAP 19.4 mmol/L (8-16); CARBON DIOXIDE 25.5 mmol/L (21.0-32.0); POTASSIUM - SERUM 3.9 mmol/L (3.5-5.1)
[2016-09-30 08:00] VITALS: BP 143/59
--- NOTE | 2016-09-30 09:49 | NUR ---
ADMINISTERED MORNING MEDICATIONS, AND 50MG OF ULTRAM FOR PAIN LEVEL OF 8/10. ALSO HELPED PT WITH FEEDING. FOOD WAS COLD SO ORDER HIM SOME OATMEAL TO EAT. PT DENIES ANY OTHER NEEDS AT THIS TIME. CALL LIGHT IN REACH, NAD NOTED, WILL CONTINUE TO MONITOR.
--- NOTE | 2016-09-30 11:31 | NUR ---
WOUND VAC DRESSING CHANGE WOUND TYPE: SURGICAL DEBRIDEMENT OF KATIE HEELS WOUND LOCATION:BILATERAL HEELS WOUND AGE IN MONTHS: DEBRIDEMENT ATTEMPTED IN LAST 10 DAYS? DATE/TYPE: NO SERIAL DEBRIDEMENTS REQUIRED? UNKNOWN MEASUREMENT DATE: 09/30/16 #1 LEFT HEEL: 4.5CM X 6CM X 0.2CM #2 RIGHT HEEL: 7CM X 6CM 0.4CM FULL THICKNESS? YES MUSCLE, TENDON OR BONE EXPOSED? NO UNDERMINING? NO TUNNELING/SINUS? NO APPEARANCE OF WOUND BED : PINK/RED/BROWN EXUDATE (AMOUNT, COLOR, ODOR): SMALL SEROUS NO ODOR FOAM TYPE: BLACK # OF PIECES USED: #1 1 PIECE FOAM TYPE: BLACK # OF PIECES USED: #2 1 PIECE EDUCATION: PT SLEPT THROUGHT VAC CHANGE. TOLERATED WELL. VERAFLOW WAS DISCONTINUED. RESTARTED WOUND VAC THERAPY AT -125MMHG MODERATE CONTINUOUS . WOUNDS HAVE IMPROVED IN SIZE. PT HAS UNSTAGEABLE PRESSURE INJURY TO SACRUM/COCCYX MEASURING 10.5C, X 8CM X ESCHAR. IT IS BEING LEFT OPEN TO AIR. PT IS ON A TURN Q 2 HOUR SCHEDULE. HOWEVER, HE CONTINUES TO REPOSITION HIMSELF BACK TO HIS BACK. WOUND CARE WILL CONTINUE MONITORING.
[2016-09-30 12:00] VITALS: BP 127/86
--- NOTE | 2016-09-30 15:49 | NUR ---
HELPED SHUTTLE FIXER TO REPOSITIONED PT IN BED, TURNED PT TO RIGHT SIDE, PT TOLERATED PROCEDURE WELL, DENIES ANY NEEDS AT THIS TIME. CALL LIGHT IN REACH, NAD NOTED, WILL CONTINUE TO MONITOR.
[2016-09-30 16:00] VITALS: BP 130/59
--- NOTE | 2016-09-30 16:11 | NUR ---
BLOOD SUGAR OF 136, NO COVERAGE NEEDED PER SLIDING SCALE. ADMINSTERED 12 UNITS OF NPH, PT IN BED, DENIES ANY NEEDS AT THIS TIME. CALL LIGHT IN REACH, NAD NOTED, WILL CONTINUE TO MONITOR.
--- NOTE | 2016-09-30 16:38 | NUR ---
Patient Name: RACHNA TAN Encounter No: [id number] : 1935 Primary Insurance: [employer] CHOICE PPO MCR ADVANT Anticipated DC Date: 09-27-2016 Planned Disposition: Assisted Acute Care Facility External Planned Provider: KARLOS CAAL DCP follow-up note: CM RECEIVED CALL FROM JOANIE WIGGINS, CLINICAL LIAISON FOR [facility], , WHO ADVISED THAT INSURANCE APPROVED LTACH SERVICES AND NO BED IS AVAILABLE TODAY; SHE IS HOPEFUL THAT A BED WILL BE AVAILABLE TOMORROW AND WILL FOLLOW UP WITH CM IN THE MORNING. PT NOTIFIED IN ROOM, AND PT'S SIGNIFICANT OTHER NOTIFIED VIA PHONE AT HOME. IMPORTANT MESSAGE FROM MEDICARE PROVIDED AND EXPLAINED. INSURANCE APPROVED LTACH; CM WAITING BED AVAILABILITY AT [facility]. Aba Egan, CASE MANAGEMENT
--- NOTE | 2016-09-30 17:28 | NUR ---
WENT INTO PT'S ROOM TO FEED HIM HIS DINNER, PT RUFUSED TO EAT AT THIS TIME, STATED HE WANTED TO SLEEP. WILL TRY AGAIN IN A LITTLE WHILE. NAD NOTED, CALL LIGHT IN REACH, WILL CONTINUE TO MONITOR.
--- NOTE | 2016-09-30 20:01 | NUR ---
RECEIVED REPORT, PT SLEEPING ON R. SIDE, 02-2L, WOUND VAC TO BOTH HEELS, R, AVF, STAGE 3 TO BUTTOCKS, ON FIRSTSTEP MATTRESS, CALL LIGHT IN REACH, BED IS LOW, SRX2
[2016-09-30 21:27] VITALS: BP 98/51
[2016-10-01] VITALS: BP 110/58
--- NOTE | 2016-10-01 02:15 | NUR ---
HELPED HEALTHCARE OR MEDICAL REPOSTION PT, CALL LIGHT IN REACH, BED IS LOW, SR2
[2016-10-01 04:00] VITALS: BP 103/51
--- NOTE | 2016-10-01 04:49 | NUR ---
PT LAYING IN BED NO DISTRESS OBSERVED CALL LIGHT IN REACH SRX2 BED LOW AND LOCKED WILL MONITOR
[2016-10-01 07:01] LABS: BASOPHILS 0.2 % (0.0-2.0); EOSINOPHILS 0.6 % (0-7); HEMATOCRIT 29.5 % (42.0-54.0); HEMOGLOBIN 9.1 g/dL (13.5-17.5); IMMATURE GRANULOCYTES 0.2 % (0-5); LYMPHOCYTES 3.6 % (15-50); MCH 30.2 pg (26.0-34.0); MCHC 30.8 g/dL (31.0-37.0); MEAN PLATELET VOLUME 10.2 fL (7.4-10.4); MONOCYTES 6.4 % (2-11); PLATELET COUNT 222 10x3/uL (130-400); RBC 3.01 10x6/uL (4.20-6.10); RDW 16.3 % (11.5-14.5); WBC 12.4 10x3/uL (4.8-10.8)
--- NOTE | 2016-10-01 07:15 | NUR ---
RECIEVED REPORT ON PATIENT, PATIENT IS ALERT AND ORIENTED AT THIS TIME. PATIENT IS PACED ON MONITOR WITH A RATE OF 82. PATIENT HAS A PACEMAKER NOTED TO L CHEST, PATIENT IS ON 2L/MIN VIA NC WITH O2 SAT 98%. WOUND VAC NOTED TO BILAT HEELS. HEELS ARE BRIDGED AT THIS TIME. PATIENT DENIES ANY NEED OR COMPLAINTS AT THIS TIME. CPOC
[2016-10-01 07:27] LABS: ANION GAP 16.4 mmol/L (8-16); CALCIUM 7.9 mg/dL (8.5-10.1); CARBON DIOXIDE 28.1 mmol/L (21.0-32.0); PHOSPHOROUS 6.7 mg/dL (2.5-4.9); VANCOMYCIN - RANDOM 12.4 ug/mL (10.0-20.0)
[2016-10-01 07:28] LABS: CREATININE - SERUM 6.3 mg/dL (0.6-1.3); POTASSIUM - SERUM 4.5 mmol/L (3.5-5.1)
[2016-10-01 08:07] VITALS: BP 93/42
--- NOTE | 2016-10-01 08:45 | NUR ---
MORNING MEDICATION GIVEN, ASSESSMENT DONE. PATIENT DENIES ANY NEEDS. CPOC
--- NOTE | 2016-10-01 12:00 | NUR ---
AT BEDSIDE FEEDING PATIENT. CPOC
[2016-10-01 12:14] VITALS: BP 143/53
--- NOTE | 2016-10-01 13:45 | NUR ---
DIAYLSIS AT BEDSIDE. CPOC
--- NOTE | 2016-10-01 14:41 | NUR ---
Nutrition follow-up: Diet: Renal ADA with po intake ~25% average of some meals Labs reviewed Wt: 180# -> wt down ~14# from admit +BM Pt is now assessed with severe malnutrition of acute illness R/T UTI AEB ~7% weight loss in 3 weeks; < 50% intake of estimated energy needs for > 5 days. Pt not meeting estimated energy needs with current po intake. Pt would benefit from nutrition support. RDN following.
[2016-10-01 15:45] VITALS: BP 155/69
--- NOTE | 2016-10-01 16:02 | NUR ---
PATIENT STILL GETTING DIAYLSIS. DENIES ANY NEEDS. VSS. CPOC
--- NOTE | 2016-10-01 16:45 | NUR ---
PATIENT FSBS 104, NPH HELD DUE TO DIAYLSIS AND NO HUMILIN REQUIRED. CPOC
--- NOTE | 2016-10-01 17:06 | NUR ---
PATIENT REFUSING TO EAT DINNER AT THIS TIME, EXPLAINED TO PATIENT THAT HE NEEDS TO EAT DUE TO NOT EATING BUT ABOUT 25% OF HIS LUNCH TODAY, STILL REFUSING TO EAT. WILL TRY AGAIN LATER. CPOC
[2016-10-01 19:00] VITALS: BP 112/57
--- NOTE | 2016-10-01 19:39 | NUR ---
RECEIVED REPORT, PT SLEEPING ON R. SIDE, WOUND VAC TO BOTH HEELS, R. AVF, PT ON AIR MATTRESS, CALL LIGHT IN REACH, BED IS LOW, SRX2, TELEMTRY-60 PACE, WILL CONTINUE TO MONITOR
--- NOTE | 2016-10-01 21:10 | NUR ---
HELP BOILER RELINER REPOSTION PT
[2016-10-02 01:10] VITALS: BP 117/58
--- NOTE | 2016-10-02 01:22 | NUR ---
PT LAYING IN BED NO DISTRESS OBSERVED PT ON 1ST STEP OVERLAY ON LEFT SIDE CALL LIGHT IN REACH SRX22 BED LOW AND LOCKED RESPERATIONS EVEN AND UNLABORED ON ROOM AIR WILL MONITOR
[2016-10-02 04:00] VITALS: BP 108/58
--- NOTE | 2016-10-02 06:10 | NUR ---
HELP SALES COMPENSATION ANALYST REPOSITION PT TO R.SIDE, DENIES ANY NEEDS, CALL LIGHT IN REACH
[2016-10-02 06:38] LABS: BASOPHILS 0.1 % (0.0-2.0); EOSINOPHILS 0.4 % (0-7); HEMATOCRIT 29.1 % (42.0-54.0); IMMATURE GRANULOCYTES 0.2 % (0-5); LYMPHOCYTES 4.2 % (15-50); MCH 30.1 pg (26.0-34.0); MCHC 30.9 g/dL (31.0-37.0); MCV 97.3 fL (80.0-100.0); MONOCYTES 8.6 % (2-11); NEUTROPHILS 86.5 % (40-80); PLATELET COUNT 241 10x3/uL (130-400); RBC 2.99 10x6/uL (4.20-6.10); RDW 16.1 % (11.5-14.5); WBC 11.1 10x3/uL (4.8-10.8)
[2016-10-02 07:00] LABS: ANION GAP 19.3 mmol/L (8-16); CALCIUM 7.8 mg/dL (8.5-10.1); CARBON DIOXIDE 26.8 mmol/L (21.0-32.0); PHOSPHOROUS 5.6 mg/dL (2.5-4.9); POTASSIUM - SERUM 4.1 mmol/L (3.5-5.1); VANCOMYCIN - RANDOM 13.7 ug/mL (10.0-20.0)
[2016-10-02 07:01] LABS: CREATININE - SERUM 4.7 mg/dL (0.6-1.3)
--- NOTE | 2016-10-02 07:34 | NUR ---
RECIEVED REPORT ON PATIENT, PATIENT IS SLEEPING AT THIS TIME, NAD NOTED. CHEST RISES AND FALLS EQUALLY, NO SOB NOTED. PATIENT IS PACED ON MONITOR WITH A RATE OF 78 AT THIS TIME. PATIENT IS ON A FIRST STEP MATTRESS AT THIS TIME. HEELS ARE BRIDGED. WOUND VAC IS NOTED TO BILAT HEELS AT THIS TIME. WILL CONT TO MONITOR PATIENT. BED LOW AND LOCKED. CALL LIGHT IN REACH. CPOC
[2016-10-02 08:12] VITALS: BP 157/60
--- NOTE | 2016-10-02 11:51 | NUR ---
WOUND CARE REASSESSMENT / VAC DRESSING CHANGE: UNSTAGEABLE PRESSURE INJURY ON SACRUM/COCCYX MEASURES 12CM X 9CM X ESCHAR WOUND EDGES ARE PINK AND BLEED EASILY. STAGE 3 PRESSURE INJURY NOTED TO LEFT TROCHANTER MEASURING 6CM X 5.5CM. WOUND BED IS PALE YELLOW/WADE. SURROUNDING SKIN IS RED AND NON-BLANCHABLE. WOUND VAC DRESSING CHANGE WOUND TYPE: SURGICAL/DEBRIDEMENT OF STAGE 3 PRESSURE INJURIES WOUND LOCATION:BILATERAL HEELS WOUND AGE IN MONTHS: DEBRIDEMENT ATTEMPTED IN LAST 10 DAYS? DATE/TYPE: NO SERIAL DEBRIDEMENTS REQUIRED?UNKNOWN MEASUREMENT DATE: 10/02/16 #1 LEFT HEEL: 5.5CM X 5.5CM X ESCHAR #2 RIGHT HEEL: 8CM X 5.5CM X ESCHAR FULL THICKNESS? YES MUSCLE, TENDON OR BONE EXPOSED? NO UNDERMINING? NO TUNNELING/SINUS? NO APPEARANCE OF WOUND BED : BLACK ESCHAR WITH AREAS OF PINK AND YELLOW EXUDATE (AMOUNT, COLOR, ODOR): SMALL TO NONE FOAM TYPE: BLACK # OF PIECES USED: LEFT - 1 PIECE FOAM TYPE: BLACK # OF PIECES USED: RIGHT - 1 PIECE -125MMHG MOD CONTINUOUS
[2016-10-02 12:04] VITALS: BP 144/53
--- NOTE | 2016-10-02 12:15 | NUR ---
PATIENT REFUSING TO EAT LUNCH AT THIS TIME. PATIENT STATES "IM NOT HUNGRY" WHEN ENCOURAGING PATIENT TO EAT TO PROMOTE HEALING HE STILL IS REFUSING WILL LEAVE TRAY AT BEDSIDE. CPOC
--- NOTE | 2016-10-02 13:19 | NUR ---
SPOKE TO DR HOUGH REGUARDING PATIENT CHANGE IN WOUNDS TO HEELS AND THAT THERE IS ESCAR TISSUE NOTED, WHEN ASKING IF HE WANTS TO DEBRIDE AGAIN HE STATED " NO, JUST PHOTOGRAPH AND DOCUMENT. PATIENT STILL ABLE TO GO TO FACILITY" CPOC
--- NOTE | 2016-10-02 15:30 | NUR ---
wound care at bedside changing wound vac and getting photos for dr flores. cpoc
[2016-10-02 16:25] VITALS: BP 123/42
--- NOTE | 2016-10-02 16:45 | NUR ---
PATIENT FSBS 140, NO HUMULIN GIVEN PER SLIDING SCALE. HELD NPH DUE TO PATIENT NOT EATING WELL, AND AT RISK FOR BOTTOMING OUT. CPOC
--- NOTE | 2016-10-02 16:55 | NUR ---
Patient Name: RACHNA TAN Encounter No: [id number] : 1935 Primary Insurance: [employer] CHOICE PPO MCR ADVANT Anticipated DC Date: 10-02-2016 Planned Disposition: Detention Acute Care Facility External Planned Provider: KARLOS CAAL DCP follow-up note: CM RECEIVED CALL FROM JOANEI WIGGINS, CLINICAL LIAISON FOR [facility], , WHO ADVISED THAT INSURANCE APPROVED LTACH SERVICES AND BED IS AVAILABLE FOR TOMORROW MORNING, 10-03-16. JOANIE WILL COME TO HOSPITAL TOMORROW TO MEET WITH CM/PT TO MAKE FINAL ARRANGEMENTS FOR PT'S DISCHARGE TO LTACH TOMORROW. CM NOTIFIED PT IN ROOM. CM CALLED PT'S SPOUSE, , NOTIFIED VIA PHONE. ALL IN AGREEMENT WITH DISCHARGE TO [facility]. [facility] WILL ACCEPT PT 10-02-16. CM TO FAX DISCHARGE INFORMATION TO [phone]. NURSE REPORT TO BE CALLED TO K[facility] CAAL AT [phone]. Aba Egan, CASE MANAGEMENT
--- NOTE | 2016-10-02 18:00 | NUR ---
PATIENT ATE ABOUT 10% OF DINNER, REFUSES TO EAT THE REST. CPOC
--- NOTE | 2016-10-02 19:42 | NUR ---
RESTING ON LEFT SIDE, A&O, DRSG TO RIGHT AVF, C/D/I. BILATERAL HEEL WOUND VACS IN PLACE. PT DENIES PAIN OR NEEDS, BED LOW, CL IN REACH.
[2016-10-02 20:00] VITALS: BP 125/51
--- NOTE | 2016-10-02 21:35 | NUR ---
HS MEDS GIVEN, BS 173, COVERED PER S/S. ULTRAM 1 TAB GIVEN FOR C/O PAIN.
[2016-10-03] VITALS: BP 141/46
--- NOTE | 2016-10-03 02:27 | NUR ---
LYING IN BED WITH CALL LIGHT IN REACH. WILL CONTINUE WITH PLAN OF CARE.
[2016-10-03 04:00] VITALS: BP 119/87
--- NOTE | 2016-10-03 04:53 | NUR ---
RESTING WITH EYES CLOSED, RESPERATIONS EVEN, NO S/S DISTRESS NOTED.
[2016-10-03 06:39] LABS: BASOPHILS 0.1 % (0.0-2.0); EOSINOPHILS 0.7 % (0-7); HEMATOCRIT 28.5 % (42.0-54.0); HEMOGLOBIN 8.7 g/dL (13.5-17.5); IMMATURE GRANULOCYTES 0.3 % (0-5); LYMPHOCYTES 7.3 % (15-50); MCH 29.7 pg (26.0-34.0); MCHC 30.5 g/dL (31.0-37.0); MCV 97.3 fL (80.0-100.0); MEAN PLATELET VOLUME 10.1 fL (7.4-10.4); NEUTROPHILS 83.6 % (40-80); PLATELET COUNT 251 10x3/uL (130-400); RBC 2.93 10x6/uL (4.20-6.10); RDW 15.8 % (11.5-14.5); WBC 8.9 10x3/uL (4.8-10.8)
[2016-10-03 07:10] LABS: ANION GAP 14.4 mmol/L (8-16); CALCIUM 8.3 mg/dL (8.5-10.1); CARBON DIOXIDE 28.9 mmol/L (21.0-32.0); CREATININE - SERUM 5.8 mg/dL (0.6-1.3); PHOSPHOROUS 5.7 mg/dL (2.5-4.9); POTASSIUM - SERUM 4.3 mmol/L (3.5-5.1); VANCOMYCIN - RANDOM 13.3 ug/mL (10.0-20.0)
--- NOTE | 2016-10-03 07:15 | NUR ---
RECIEVED REPORT ON PATIENT, PATIENT IS PACED ON MONITOR WITH A RATE OF 79. PATIENTIS ALERT AND ORIENTED THIS AM. PATIENT IS EXCITED ABOUT GETTING TO LEAVE TODAY. PATIENT HAS WOUND VAC TO BILAT HEELS, HEELS ARE BRIDGE AT THIS TIME. PATIENT ALSO HAS AN UNSTAGEABLE COCCYX WOUND NOTED. PATIENT IS ON 2L/MIN VIA NC WITH NAD NOTED AT THIS TIME. CHEST RISES AND FALLS EQUALLY. WILL CONT TO MONITOR PATIENT, DENIES ANY NEEDS. CPOC
[2016-10-03] MEDS ORDERED: MIDODRINE HCL10 MG PO (08:29)
[2016-10-03] MEDS ORDERED: LOVENOX30 MG/0.3 SC (08:30)
[2016-10-03] MEDS ORDERED: PROCRIT/EP4000 UNITS SQ (08:32)
[2016-10-03] MEDS ORDERED: RENVELA0.8 GM PO (08:34)
[2016-10-03] MEDS ORDERED: FLORAJEN3 CAPS460 MG PO (08:34)
[2016-10-03] MEDS ORDERED: HUMULIN N100 U/ML SC (08:35)
[2016-10-03] MEDS ORDERED: HUMULIN R100 U/ML SC (08:36)
[2016-10-03] MEDS ORDERED: CALMOSEPTINE OI71 GM TOPICAL (08:41)
[2016-10-03] MEDS ORDERED: NEPHRO-VITE RX1 TAB PO (08:42)
[2016-10-03 08:43] VITALS: BP 131/53
--- NOTE | 2016-10-03 10:52 | NUR ---
Patient Name: RACHNA TAN Encounter No: [id number] : 1935 Primary Insurance: [employer] CHOICE PPO MCR ADVANT Anticipated DC Date: 10-03-2016 Planned Disposition: [facility] External Planned Provider: [facility]OSO [facility] DCP follow-up note: CM RECEIVED CALL FROM JOANIE OF [facility], THEY WILL ACCEPT PT TODAY. CM NOTIFIED PT HE WOULD GO AFTER DIALYSIS, PT IN AGREEMENT WITH DISCHARGE TODAY TO LTACH. IMPORTANT MESSAGE FROM MEDICARE PROVIDED AND EXPLAINED. DISCHARGE INFORMATION TO BE FAXED TO [phone], NURSE REPORT TO BE CALLED TO [facility] AT [phone], ADMIT TO ROOM 316, TRANSPORT VIA AMBULANCE. Aba Egan, CASE MANAGEMENT
[2016-10-03 12:11] VITALS: BP 132/58
--- NOTE | 2016-10-03 13:23 | NUR ---
IV ACCESS-needed for transfer. #22 introcan placed in left hand area for saline lock. Sis Owen RN
--- NOTE | 2016-10-03 13:31 | NUR ---
Patient Name: RACHNA TAN Encounter No: [id number] : 1935 Primary Insurance: [employer] CHOICE PPO MCR ADVANT Anticipated DC Date: 10-03-2016 Planned Disposition: [facility] External Planned Provider: KRANTHI COOK DCP follow-up note: FREDDY FAXED DICHARGE INFORMATION TO [phone]. NURSE REPORT TO BE CALLED TO [facility] AT [phone]. PT TO ADMIT TO BED 316. TRANSPORT VIA AMBULANCE. Aba Egan, CASE MANAGEMENT
--- NOTE | 2016-10-03 14:00 | NUR ---
CALLED [facility], ASKED TO SPEAK WITH [facility], WAS ON HOLD FOR 5 MIN AND THEY ANSWERED AND SAID THEY WOULD CALL ME BACK. CPOC
--- NOTE | 2016-10-03 15:00 | NUR ---
SPOKE WITH SANDRA AT [facility], REPORT GIVEN. DENIES ANY QUESTIONS. CPOC
--- NOTE | 2016-10-03 15:05 | NUR ---
SPOKE WITH LEONARD AT [facility] FOR TRANSPORT. CPOC
[2016-10-03 15:32] VITALS: BP 140/59
--- NOTE | 2016-10-03 16:30 | NUR ---
[facility] HERE FOR TRASPORT. PATIENT READY FOR DC
--- NOTE | 2016-10-04 06:59 | DS ---
PATIENT:RACHNA TAN :[birth year] MEDICAL RECORD: [id number] DISCHARGE SUMMARY ADMISSION DATE: 09/11/16 DISCHARGE DATE: 10/03/16 HISTORY OF PRESENT ILLNESS: Mr. Tan is an 81-year-old white male with end-stage renal disease who has recently moved in to our area in [place]. He has a significant other, whom he lives with. He is not currently . He is admitted with persistent weakness and found to have severe sacral and heel decubiti and positive blood cultures and admitted for the above. HOSPITAL COURSE: The patient did have a urinary tract infection as well as infection of his decubiti. He did have positive blood cultures after gram-positive cocci. He was treated with vancomycin, underwent debridement by Dr. Garcia, finding pus extending in both Achilles tendons up from his wounds. He was placed on bilateral wound VACs, had sacral decubitus also and after consultation with the insurance company and [facility], he has been accepted at [facility] for further wound care and nutritional therapy and continued dialysis. During this time, he underwent acute dialysis without difficulty and was otherwise stable for transfer at the time of discharge. DISCHARGE DIAGNOSES: 1. Gram-positive sepsis. 2. Urinary tract infection. 3. Sacral and heel decubiti. 4. End-stage renal disease. 5. Chronic anemia. 6. Severe debilitation. PLAN: The patient will be transferred to [facility]. I would be the admitting physician there. I will continue to follow him there. We will continue to dialyze him there. We will continue same diet and medications there. We will continue wound care there. TRANSINT:[id number] Voice Confirmation ID: [id number] DOCUMENT ID: [id number] NINA CHUA MD at 0659 CC: [id number] DICTATION DATE: 10/03/16 0653 APPEALS AND GENERALIST CLERK: 10/03/16 0851 DIS IN 10/03/16 [id number] [place] [address]
== END 2016-10-03 17:22 | disposition short-term general hospital (02) | DRG 853 ==
LOC: D.ER 10:01 → D.M2 12:24 → OBSVTIME 12:24 → D.M2 15:26
PROVIDERS: Emergency Medicine; Internal Medicine; Internal Medicine Nephrology; Surgery; ADMIT Internal Medicine Nephrology
PROC: 5A1D60Z (ICD-10-PCS; 2016-09-12)
PROC: 0HBMXZZ Excision of Right Foot Skin, External Approach (ICD-10-PCS; 2016-09-20)
PROC: 0HBNXZZ Excision of Left Foot Skin, External Approach (ICD-10-PCS; principal; 2016-09-20 11:30)
DX: A41.9 Sepsis, unspecified organism (principal); N18.6 End stage renal disease; L89.153 Pressure ulcer of sacral region, stage 3; L89.623 Pressure ulcer of left heel, stage 3; L89.613 Pressure ulcer of right heel, stage 3; N39.0 Urinary tract infection, site not specified; I13.2 Hypertensive heart and chronic kidney disease with heart failure and with stage 5 chronic kidney disease, or end stage renal disease; E11.22 Type 2 diabetes mellitus with diabetic chronic kidney disease; Z99.2 Dependence on renal dialysis; R62.7 Adult failure to thrive; Z91.81 History of falling; I48.91 Unspecified atrial fibrillation; I50.9 Heart failure, unspecified; Z66 Do not resuscitate; Z95.0 Presence of cardiac pacemaker; Z86.73 Personal history of transient ischemic attack (TIA), and cerebral infarction without residual deficits